=== PATIENT | male | born 1975 | race Caucasian/White ===

== ENCOUNTER 2016-02-20 23:21 | Emergency (ER) | payer MEDICAID ==
[~2016-02-20] VITALS: Ht 182.9 cm; Wt 123.8 kg
[~2016-02-20 23:21] MED LIST: ANTIVERT GENERI25 MG PO; ASPIRIN 81MG TA81 MG PO; ATIVAN0.5 MG PO; ATORVASTATIN CA40 MG PO; CARVEDILOL6.25 MG PO; CLONAZEPAM0.5 M1 PO; DIOVAN80 MG PO; DOXYCYCLINE100 M1 PO; ETODOLAC400 MG PO; HYDROCHLOROTHIA25 M1 PO; HYDROCODONE-APA1 TA1 PO; HYDROCODONE-APA1 TA2 PO; HYDROXYZINE PA100 MG PO; KLOR-CON M2020 ME1 PO; LOSARTAN POTASS50 MG PO; MAG-OX 400MG T400 MG PO; MECLIZINE 25MG25 MG PO; METOPROLOL SUC200 M1 PO; METOPROLOL SUCC50 M1 PO; METOPROLOL SUCC50 M2 PO; METOPROLOL TAR100 MG PO; METOPROLOL TART50 MG; NORCO 325 MG-51 TAB PO; OMEPRAZOLE40 MG PO; PERCOGESIC EXTR1 TAB PO; PHENERGAN VC +120 ML PO; PREDNISONE 20MG20 MG PO; PROZAC 20MG CAP20 MG PO; QUETIAPINE FUM100 M2 PO; ROBITUSSIN DM S10 ML NG; TESSALON PERLE100 MG PO; VENLAFAXINE HCL50 MG PO; ZANAFLEX4 MG NG; ZITHROMAX Z-PA250 M1 PO; ZOFRAN4 MG PO
[2016-02-20] MEDS ORDERED: BENADRYL 25MG C25 MG PO (23:34)
[2016-02-21] LABS: HEMOGLOBIN 15.4 g/dL (14.1-18.0); LYMPH # 3.1 K/mm3 (0.7-4.5); LYMPH % 30.8 % (10-50)
--- NOTE | 2016-02-21 00:14 | Emergency Room Report ---
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 N Clinical Suspician of Infection? N Mental Status: 1 - Regular (Normal Baseline) Sepsis Risk:Possible Sepsis Risk Have you (or family members/close friends) recently traveled outside the [place]? N If Yes, where/when: Have you had exposure to infectious disease within the past month? N TB? Other? Specify: Source patient, RN notes reviewed, old records Exam Limitations no limitations Comment after eating burning pain in throat and center chest to upper abd with feeling of sob - he had ok cath 2014 and has appt this week with card for pac - he denied any melena or other c/o at this time Cardiac Chest Pain Chest pain indicative of cardiac No Timing/Duration this evening Severity moderate ALLERGIES Coded Allergies: buspirone (From BUSPAR) (Intermediate, I-HIVES 01/16/16) peanut oil (ANAPHYLAXIS 01/16/16) Uncoded Allergies: STEROIDS (PT STATES CAUSE "HYPERTENSIVE EMERGENCY" 03/07/15) Home Medications Reported Medications Clonazepam (Clonazepam 0.5MG) 0.5 MG PO BID #60 TAB Losartan Potassium (Losartan 50MG) 50 MG PO DAILY #30 TAB MAGNESIUM OXIDE (Magnesium Oxide) 400 MG PO DAILY METOPROLOL SUCCINATE (Metoprolol ER 200MG) 200 MG PO DAILY #30 ASPIRIN (Aspirin) 81 MG PO DAILY Diphenhydramine Hcl (Benadryl 25MG CAP) 1 CAP PO Q6H PRN History Medical History General CAD? No Angina: Yes NM: No Hypertension? Yes Hyperlipidemia? Yes CHF? No DVT? No PE? No COPD? No Asthma? No Anemia? No GERD? Yes Gastric ulcers? No GI Bleed? No Hernia? No Thyroid Problems? No Hypothyroidism? No CVA? No Seizures? No Diabetes? No Insulin Dependent: No Insulin Pump: No Home FSBS? No Renal Insuffiency? No End Stage Renal Disease? No UTI? No Stones? No BPH? No GB Disease: Yes Nephritic Syndrome? No Asplenia? No Hepatitis? No Sickle Cell Disease? No Arthritis? No Migraines? No Cataracts? No Glaucoma? No MRSA? No HIV? No TB? No Anxiety? Yes Depression? Yes Cancer? No More? Yes Additional hx: PTSD Immunization Hx DT/Tetanus 1-4 Years Ago Flu [id number] Flu Season Pneumonia Received In Past Surgical Hx Previous Surgery?Y APPY RIGHT HAND-LIGAMENT REPAI CARDIAC CATH 08/23/14 Gallbladder (Other) RIGHT ARM SX Family History Family Hx Diabetes Yes CAD Yes Hypertension Yes Hyperlipidemia Yes Cancer Yes TB No Social History Smoking Hx Smoker: Current Every Day Smoker Tobacco: Yes Type Chew Alcohol Alcohol: No Drugs none Review of Systems All Other Systems Reviewed and Negative Constitutional denies fever Eyes denies drainage ENT denies: ear pain, epistaxis, throat pain. Respiratory see HPI, denies cough, shortness of breath, denies wheezing Cardiovascular see HPI, chest pain, denies palpitations, denies syncope Gastrointestinal denies abdominal pain, denies diarrhea, denies vomiting Genitourinary denies: dysuria, frequency, hesitancy, hematuria. Musculoskeletal denies back pain, denies joint pain, denies joint swelling, denies neck pain Skin denies rash Psychiatric/Neurological denies headache, denies seizure Physical Exam Vital Signs Vital Signs Date Time Temp Pulse Resp B/P Pulse O2 O2 Flow FiO2 Ox Delivery Rate 02/19 2326 97.7 103 20 183/103 100 - WBC >12,000 or <4,000 or 10% bands? 2 or more SIRS Criteria Met? B/P:183/103 MAP:129 Creatinine >2.0? UA output<0.5ml/kg/hr for 2 hrs? Platelet count >100,000? Lactate >2.0mmol/1? INR >1.2 or PTT > than 60 sec? Evidence of Organ Dysfunction? Provider documented clinical suspician of infection? N Sepsis Criteria Count: 2 Sepsis Risk: Possible Sepsis Risk General Appearance no apparent distress Eye Exam - bilateral eye PERRL, bilateral eye EOMI Ear, Nose, Throat normal ENT inspection Neck supple Respiratory Status No: respiratory distress. Lung Sounds bilateral: lungs clear. Cardiovascular regular rate/rhythm, no gallop, no JVD, no rub, systolic murmur Peripheral Pulses Pulses normal Yes Gastrointestinal soft, no organomegaly, no pulsatile mass, no guarding, no rebound Extremities normal inspection Strength 4 Upper Ext (L), 4 Upper Ext (R), 4 Lower Ext (L), 4 Lower Ext (R) Neurologic alert, records assistant II-XII nml as tested, no motor/sensory deficits Reflexes Reflexes normal Yes Mental status normal mood/affect Skin intact Medical Decision Making LABS/Meds/Orders Pt receiving controlled substance in ED? No Results/Orders Laboratory Tests 02/20/16 2350: Sodium 137, Potassium 3.4 L, Chloride 101, Carbon Dioxide 28, BUN 15, Creatinine 1.1, Estimated Creat Clear 152, Estimated GFR (MDRD) 73, Glucose 111 H, Calcium 8.7, Total Bilirubin 0.2, AST 21, ALT 64, Alkaline Phosphatase 101, Creatine Kinase 78, CK-MB (CK-2) Rel Index 0.6, CK and CKMB Interp 0.5, Troponin I < 0.02, Total Protein 7.8, Albumin 3.9, Globulin 3.9 H, Albumin/Globulin Ratio 1.0 L, WBC 10.1, RBC 4.90, Hgb 15.4, Hct 44.0, MCV 89.8, RDW 13.1, Plt Count 448 H, MPV 8.3, Gran % 62.9, Gran # 6.4, Lymphocytes % 30.8, Monocytes % 4.1, Eosinophils % 1.7, Basophils % 0.5, Lymphocytes # 3.1, Monocytes # 0.4, Eosinophils # 0.2, Basophils # 0.1, PUBS MCHC 35.0, MCH 31.4 H Current Medication Orders Sig/Pallavi Start time Last Medication Dose Route Stop Time Status Admin Sodium Chloride 10 ML PRN PRN 02/21 44 AC 02/20 IV 02/210 0042 Famotidine 0 .STK-MED ONE 02/20 27 DC IV Metoclopramide HCl 0 .STK-MED ONE 02/20 27 DC .ROUTE Famotidine 20 MG ONCE ONE 02/20 14 DC 02/20 IV 02/20 Metoclopramide HCl 10 MG ONCE ONE 02/20 14 DC 02/20 IVP 02/206 004 Sodium Chloride 8 ML ONCE ONE 02/20 14 DC 02/20 IV 01/04 0016 0041 Orders Procedure Date/time Status IV SALINE LOCK 02/21 40 Active ELECTROCARDIOGRAM REQUEST 02/20 2340 Active CHEST(2 VIEWS-NOT PORTABLE) 02/20 2340 Active CBC WITH AUTO DIFF 02/20 2340 Complete CARDIAC ENZYMES 02/20 2340 Complete CHEM 12 PROFILE 02/20 2340 Complete 12 LEAD EKG-[facility] (INITIAL) 02/19 UNK Active 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 ST/Twave chgs XRAY/CT/US XRAY/CT/US XRAY chest XR interpretation by reviewed by me Xray Results abnormal (cm) Progress ED Progress Notes Date 02/21/16 Comment feels better after meds Departure Departure Time of Disposition 0104 Disposition DC Home or Self Care(routine) Clinical Impression Primary Impression: Chest pain Qualifiers: Chest pain type: unspecified Qualified Code: R07.9 - Chest pain, unspecified Condition STABLE Patient Instructions DI for Chest Pain Additional Instructions see card as planned and resume meds Discharge Counseling Counseled pt/family regarding diagnosis, test results, follow up needs ED Critical Care Critical Care No at 0108
[2016-02-21 00:25] LABS: BUN 15 mg/dL (7-18)
[2016-02-21 00:26] LABS: GFR (ESTIMATED) 73 ML/MIN (>60)
[2016-02-21 01:15] VITALS: BP 154/78
--- NOTE | 2016-02-21 08:36 | RADIOLOGY REPORT PS360 ---
CHEST(2 VIEWS-NOT PORTABLE) COMPARISON: PA and lateral chest 01/16/2016 HISTORY: Shortness of breath TECHNIQUE: PA and lateral chest FINDINGS: This is a somewhat poor inspiration however lung banks are clear. There is mild generalized cardio megaly and there is a small cardiac monitoring device overlying the left anterior chest is no pleural fluid. IMPRESSION: Stable mild cardio megaly, no acute chest pathology noted
[2016-04-18] MEDS ORDERED: CLONAZEPAM0.5 M1 PO (02:39)
[2016-05-19] MEDS ORDERED: FLOVENT 22220 MCG/PU IH (17:59)
[2016-05-19] MEDS ORDERED: KEFLEX500 M1 PO (17:59)
== END 2016-02-21 01:15 | disposition home or self-care (01) ==
LOC: ER 23:21
PROVIDERS: Emergency Medicine
DX: R07.9 Chest pain, unspecified (principal); F41.8 Other specified anxiety disorders; K21.9 Gastro-esophageal reflux disease without esophagitis; I10 Essential (primary) hypertension

== ENCOUNTER 2016-11-02 13:35 | Emergency (ER) | payer MEDICARE ==
[~2016-11-02] VITALS: Ht 182.9 cm; Wt 122.5 kg
[~2016-11-02 13:35] MED LIST changes: +ACETAMINOPHEN-H1 TA1 PO; +BENADRYL 25MG C25 MG PO; +FLOVENT 22220 MCG/PU IH; +KEFLEX500 M1 PO; +PHENERGAN25 M3 PO
[2016-11-02] MEDS ORDERED: DOXEPIN 25MG CA25 MG PO (13:59)
--- NOTE | 2016-11-02 14:14 | Emergency Room Report ---
History of Present Illness Time Seen by [id number] Presenting Problem in Triage Pt arrived: Presenting Problem: Onset of symptoms date/time:/ or onset unknown for: Treatment Prior to Arrival: [facility] Provided by: Sepsis Risk Assessment: Temp: B/P: MAP: Pulse: Resp: Recent fever? Clinical Suspician of Infection? Mental Status: Sepsis Risk: Have you (or family members/close friends) recently traveled outside the [place]? If Yes, where/when: Have you had exposure to infectious disease within the past month? TB? Other? Specify: Patient with loop recorder for dx of paroxysmal Afib; followed by Dr. Annie Rock in [place] as well as Dr. Mckay in [place]. He has had the sensation of brief episodes of Afib over the past three days, lasting just seconds, but at times feels SOB without palpitations. No chest pain. Told by [employer] to go to ER for evaluation. Overall doing well since stopping Klonopin and starting Doxepin per Dr. Flores in [place]. Anxiety is well under control and overall is feeling much better about his life in general. ALLERGIES Coded Allergies: buspirone (From BUSPAR) (Intermediate, I-HIVES 04/18/16) peanut oil (ANAPHYLAXIS 04/18/16) Home Medications Reported Medications MAGNESIUM OXIDE (Magnesium Oxide) 400 MG PO DAILY METOPROLOL SUCCINATE (Metoprolol ER 200MG) 200 MG PO DAILY #30 HYDROCODONE/ACETAMINOPHEN (Hydrocodon-Acetaminophn 10-325) 1 TAB PO PRN PRN PAIN #60 Doxepin Hcl (Doxepin 25MG Capsule) 25 MG PO QHS #30 History Medical History General CAD? Yes Angina: Yes NM: No Hypertension? Yes Hyperlipidemia? Yes CHF? No DVT? No PE? No COPD? No Asthma? No Anemia? No GERD? Yes Gastric ulcers? No GI Bleed? No Hernia? No Thyroid Problems? No Hypothyroidism? No CVA? No Seizures? No Diabetes? No Insulin Dependent: No Insulin Pump: No Home FSBS? No Renal Insuffiency? No End Stage Renal Disease? No UTI? No Stones? No BPH? No GB Disease: Yes Nephritic Syndrome? No Asplenia? No Hepatitis? No Sickle Cell Disease? No Arthritis? No Migraines? No Cataracts? No Glaucoma? No MRSA? No HIV? No TB? No Anxiety? Yes Depression? Yes Cancer? No More? Yes Additional hx: PTSD Immunization Hx DT/Tetanus 1-4 Years Ago Flu [id number] Flu Season Pneumonia Received In Past Surgical Hx Previous Surgery?Y APPY RIGHT HAND-LIGAMENT REPAI CARDIAC CATH 08/23/14 Gallbladder (Other) RIGHT ARM SX R SHOULDER LEFT ARM LOOP RECORDER Family History Family Hx Diabetes Yes CAD Yes Hypertension Yes Hyperlipidemia Yes Cancer Yes TB No Social History Alcohol Alcohol: No Review of Systems All Other Systems Reviewed and Negative Respiratory see HPI Cardiovascular see HPI, denies chest pain, denies edema, palpitations, denies syncope Psychiatric/Neurological anxiety (anxiety improved on new Rx) Physical Exam Vital Signs Vital Signs Date Time Temp Pulse Resp B/P Pulse O2 O2 Flow FiO2 Ox Delivery Rate 11/02 1550 73 18 133/85 97 11/02 1441 78 18 134/86 96 11/02 1339 97.7 86 18 135/89 96 General Appearance normal appearance, WD/WN, no apparent distress Eye Exam - bilateral eye normal exam, bilateral eye PERRL, bilateral eye EOMI Neck normal inspection, supple, full range of motion Respiratory Status Yes: trachea midline, chest symmetrical, non tender chest. No: respiratory distress, tender on palpation, use of accessory muscles, pain on inspiration, pain on expiration, productive cough, non productive cough. Lung Sounds bilateral: normal breath sounds, lungs clear. Cardiovascular normal exam, regular rate/rhythm, no peripheral edema, no gallop, no JVD, no murmur, no rub, normal peripheral pulses Gastrointestinal normal bowel sounds, normal exam, non tender, soft, no organomegaly, no pulsatile mass, no guarding, no rebound Extremities non-tender, normal range of motion, normal inspection, normal capillary refill, no calf tenderness, no pedal edema Strength 5 Upper Ext (L), 5 Upper Ext (R), 5 Lower Ext (L), 5 Lower Ext (R) Neurologic alert, normal exam, no motor/sensory deficits, oriented x 3 Glascow Coma Scale Glascow Coma Scale Response Value EYE response: 4 Spontaneously 4 MOTOR response: 6 OBEYS 6 VERBAL response: 5 Oriented & Converses 5 Total 15 Mental status normal mood/affect Skin intact, normal color, warm/dry Medical Decision Making LABS/Meds/Orders Pt receiving controlled substance in ED? No Results/Orders Laboratory Tests 11/02/16 1415: Sodium 138, Potassium 4.1, Chloride 102, Carbon Dioxide 27, BUN 15, Creatinine 0.8, Estimated Creat Clear 206 H, Estimated GFR (MDRD) 106, Glucose 96, Calcium 9.1, Total Bilirubin 0.2, AST 25, ALT 74, Alkaline Phosphatase 92, Creatine Kinase 105, CK-MB (CK-2) Rel Index 0.5, CK and CKMB Interp < 0.5, Troponin I < 0.02, Total Protein 7.9, Albumin 4.0, Globulin 3.9 H, Albumin/Globulin Ratio 1.0 L, D-Dimer < 100, WBC 8.4, RBC 5.10, Hgb 15.4, Hct 45.4, MCV 89.1, RDW 12.1 , Plt Count 404, MPV 6.9 L, Gran % 63.3, Gran # 5.3, Lymphocytes % 28.4, Monocytes % 4.9, Eosinophils % 3.0, Basophils % 0.4, Lymphocytes # 2.4, Monocytes # 0.4, Eosinophils # 0.3, Basophils # 0.0, PUBS MCHC 33.9, MCH 30.2 Current Medication Orders Sig/Pallavi Start time Last Medication Dose Route Stop Time Status Admin Promethazine HCl 12.5 MG ONCE ONE 11/02 1530 DC 11/02 IV 11/02 1531 1526 Sodium Chloride 25 ML ONCE ONE 11/02 1530 DC 11/02 IV 11/02 1544 1526 Promethazine HCl 0 .STK-MED ONE 11/02 1523 DC .ROUTE Sodium Chloride 25 ML .STK-MED ONE 11/02 1523 DC IV Ondansetron HCl 0 .STK-MED ONE 11/02 1520 DC .ROUTE Ondansetron HCl 4 MG ONCE ONE 11/02 1515 CAN IV 11/02 1516 Sodium Chloride 10 ML PRN PRN 11/02 1430 AC IV 11/03 1416 Orders Procedure Date/time Status IV SALINE LOCK 11/02 1416 Active FUND RAISER 11/02 1416 Active D-DIMER 11/02 1409 Complete CBC WITH AUTO DIFF 11/02 1409 Complete CARDIAC ENZYMES 11/02 1409 Complete CHEM 12 PROFILE 11/02 1409 Complete 12 LEAD EKG-[facility] (INITIAL) 11/02 1400 Active ELECTROCARDIOGRAM REQUEST 11/02 1356 Active CM/EKG CM/EKG EKG rate, NSR, rhythm, no evid. of ischemic chgs, no ectopy, normal QRS, normal TX, normal EKG (NSR 81; no ectopy) Departure Departure Time of Disposition 1606 Disposition DC Home or Self Care(routine) Clinical Impression Primary Impression: Palpitations Secondary Impressions: History of paroxysmal atrial tachycardia Condition STABLE Referrals DARIANA RUST (Family) Patient Instructions DI for Palpitations Additional Instructions See Dr. Rock for follow up next week. See Dr. Aman Rust as well. Continue current medications Discharge Counseling Counseled pt/family regarding diagnosis, test results ED Critical Care Critical Care No at 1611
--- NOTE | 2016-11-02 14:14 | Emergency Room Report ---
History of Present Illness Time Seen by [id number] Presenting Problem in Triage Pt arrived: Presenting Problem: Onset of symptoms date/time:/ or onset unknown for: Treatment Prior to Arrival: [employer] Provided by: Sepsis Risk Assessment: Temp: B/P: MAP: Pulse: Resp: Recent fever? Clinical Suspician of Infection? Mental Status: Sepsis Risk: Have you (or family members/close friends) recently traveled outside the [place]? If Yes, where/when: Have you had exposure to infectious disease within the past month? TB? Other? Specify: Patient with loop recorder for dx of paroxysmal Afib; followed by Dr. Annie Rock in [place] as well as Dr. Mckay in [place]. He has had the sensation of brief episodes of Afib over the past three days, lasting just seconds, but at times feels SOB without palpitations. No chest pain. Told by [employer] to go to ER for evaluation. Overall doing well since stopping Klonopin and starting Doxepin per Dr. Flores in [place]. Anxiety is well under control and overall is feeling much better about his life in general. ALLERGIES Coded Allergies: buspirone (From BUSPAR) (Intermediate, I-HIVES 04/18/16) peanut oil (ANAPHYLAXIS 04/18/16) Home Medications Reported Medications MAGNESIUM OXIDE (Magnesium Oxide) 400 MG PO DAILY METOPROLOL SUCCINATE (Metoprolol ER 200MG) 200 MG PO DAILY #30 HYDROCODONE/ACETAMINOPHEN (Hydrocodon-Acetaminophn 10-325) 1 TAB PO PRN PRN PAIN #60 Doxepin Hcl (Doxepin 25MG Capsule) 25 MG PO QHS #30 History Medical History General CAD? Yes Angina: Yes ID: No Hypertension? Yes Hyperlipidemia? Yes CHF? No DVT? No PE? No COPD? No Asthma? No Anemia? No GERD? Yes Gastric ulcers? No GI Bleed? No Hernia? No Thyroid Problems? No Hypothyroidism? No CVA? No Seizures? No Diabetes? No Insulin Dependent: No Insulin Pump: No Home FSBS? No Renal Insuffiency? No End Stage Renal Disease? No UTI? No Stones? No BPH? No GB Disease: Yes Nephritic Syndrome? No Asplenia? No Hepatitis? No Sickle Cell Disease? No Arthritis? No Migraines? No Cataracts? No Glaucoma? No MRSA? No HIV? No TB? No Anxiety? Yes Depression? Yes Cancer? No More? Yes Additional hx: PTSD Immunization Hx DT/Tetanus 1-4 Years Ago Flu 1422-2021 Flu Season Pneumonia Received In Past Surgical Hx Previous Surgery?Y APPY RIGHT HAND-LIGAMENT REPAI CARDIAC CATH 08/23/14 Gallbladder (Other) RIGHT ARM SX R SHOULDER LEFT ARM LOOP RECORDER Family History Family Hx Diabetes Yes CAD Yes Hypertension Yes Hyperlipidemia Yes Cancer Yes TB No Social History Alcohol Alcohol: No Review of Systems All Other Systems Reviewed and Negative Respiratory see HPI Cardiovascular see HPI, denies chest pain, denies edema, palpitations, denies syncope Psychiatric/Neurological anxiety (anxiety improved on new Rx) Physical Exam Vital Signs Vital Signs Date Time Temp Pulse Resp B/P Pulse O2 O2 Flow FiO2 Ox Delivery Rate 11/02 1550 73 18 133/85 97 11/02 1441 78 18 134/86 96 11/02 1339 97.7 86 18 135/89 96 General Appearance normal appearance, WD/WN, no apparent distress Eye Exam - bilateral eye normal exam, bilateral eye PERRL, bilateral eye EOMI Neck normal inspection, supple, full range of motion Respiratory Status Yes: trachea midline, chest symmetrical, non tender chest. No: respiratory distress, tender on palpation, use of accessory muscles, pain on inspiration, pain on expiration, productive cough, non productive cough. Lung Sounds bilateral: normal breath sounds, lungs clear. Cardiovascular normal exam, regular rate/rhythm, no peripheral edema, no gallop, no JVD, no murmur, no rub, normal peripheral pulses Gastrointestinal normal bowel sounds, normal exam, non tender, soft, no organomegaly, no pulsatile mass, no guarding, no rebound Extremities non-tender, normal range of motion, normal inspection, normal capillary refill, no calf tenderness, no pedal edema Strength 5 Upper Ext (L), 5 Upper Ext (R), 5 Lower Ext (L), 5 Lower Ext (R) Neurologic alert, normal exam, no motor/sensory deficits, oriented x 3 Glascow Coma Scale Glascow Coma Scale Response Value EYE response: 4 Spontaneously 4 MOTOR response: 6 OBEYS 6 VERBAL response: 5 Oriented & Converses 5 Total 15 Mental status normal mood/affect Skin intact, normal color, warm/dry Medical Decision Making LABS/Meds/Orders Pt receiving controlled substance in ED? No Results/Orders Laboratory Tests 11/02/16 1415: Sodium 138, Potassium 4.1, Chloride 102, Carbon Dioxide 27, BUN 15, Creatinine 0.8, Estimated Creat Clear 206 H, Estimated GFR (MDRD) 106, Glucose 96, Calcium 9.1, Total Bilirubin 0.2, AST 25, ALT 74, Alkaline Phosphatase 92, Creatine Kinase 105, CK-MB (CK-2) Rel Index 0.5, CK and CKMB Interp < 0.5, Troponin I < 0.02, Total Protein 7.9, Albumin 4.0, Globulin 3.9 H, Albumin/Globulin Ratio 1.0 L, D-Dimer < 100, WBC 8.4, RBC 5.10, Hgb 15.4, Hct 45.4, MCV 89.1, RDW 12.1 , Plt Count 404, MPV 6.9 L, Gran % 63.3, Gran # 5.3, Lymphocytes % 28.4, Monocytes % 4.9, Eosinophils % 3.0, Basophils % 0.4, Lymphocytes # 2.4, Monocytes # 0.4, Eosinophils # 0.3, Basophils # 0.0, PUBS MCHC 33.9, MCH 30.2 Current Medication Orders Sig/Pallavi Start time Last Medication Dose Route Stop Time Status Admin Promethazine HCl 12.5 MG ONCE ONE 11/02 1530 DC 11/02 IV 11/02 1531 1526 Sodium Chloride 25 ML ONCE ONE 11/02 1530 DC 11/02 IV 11/02 1544 1526 Promethazine HCl 0 .STK-MED ONE 11/02 1523 DC .ROUTE Sodium Chloride 25 ML .STK-MED ONE 11/02 1523 DC IV Ondansetron HCl 0 .STK-MED ONE 11/02 1520 DC .ROUTE Ondansetron HCl 4 MG ONCE ONE 11/02 1515 CAN IV 11/02 1516 Sodium Chloride 10 ML PRN PRN 11/02 1430 AC IV 11/03 1416 Orders Procedure Date/time Status IV SALINE LOCK 11/02 1416 Active SURGICAL AIDE 11/02 1416 Active D-DIMER 11/02 1409 Complete CBC WITH AUTO DIFF 11/02 1409 Complete CARDIAC ENZYMES 11/02 1409 Complete CHEM 12 PROFILE 11/02 1409 Complete 12 LEAD EKG-[facility] (INITIAL) 11/02 1400 Active ELECTROCARDIOGRAM REQUEST 11/02 1356 Active CM/EKG CM/EKG EKG rate, NSR, rhythm, no evid. of ischemic chgs, no ectopy, normal QRS, normal NM, normal EKG (NSR 81; no ectopy) Departure Departure Time of Disposition 1606 Disposition DC Home or Self Care(routine) Clinical Impression Primary Impression: Palpitations Secondary Impressions: History of paroxysmal atrial tachycardia Condition STABLE Referrals DARIANA RUST (Family) Patient Instructions DI for Palpitations Additional Instructions See Dr. Rock for follow up next week. See Dr. Aman Rust as well. Continue current medications Discharge Counseling Counseled pt/family regarding diagnosis, test results ED Critical Care Critical Care No at 1611
[2016-11-02 14:34] LABS: HEMOGLOBIN 15.4 g/dL (14.1-18.0); LYMPH # 2.4 K/mm3 (0.7-4.5); LYMPH % 28.4 % (10-50)
[2016-11-02 14:48] LABS: BUN 15 mg/dL (7-18); GFR (ESTIMATED) 106 ML/MIN (>60)
[2016-11-02 16:23] VITALS: BP 125/76
== END 2016-11-02 16:24 | disposition home or self-care (01) ==
LOC: ER 13:35
PROVIDERS: Emergency Medicine
DX: I48.0 Paroxysmal atrial fibrillation (principal); I25.10 Atherosclerotic heart disease of native coronary artery without angina pectoris; I10 Essential (primary) hypertension; F41.9 Anxiety disorder, unspecified; F32.9 Major depressive disorder, single episode, unspecified; Z79.891 Long term (current) use of opiate analgesic

== ENCOUNTER 2016-12-22 01:42 | Emergency (ER) | payer MEDICARE ==
[~2016-12-22] VITALS: Ht 182.9 cm; Wt 124.3 kg
[~2016-12-22 01:42] MED LIST changes: +DOXEPIN 25MG CA25 MG PO
--- OUTSIDE RECORDS SUMMARY | 2016-12-22 02:00 | External Medical Summary Rpt | CCD ---
Author Author , HORACE VU Address Unknown Phone [email or web address] Team Providers Care Aviation Maintenance Instructor Name Role Phone Danny Cartagena MD, Unavailable Unavailable Danny Cartagena MD Purpose Continuity of Care Document - 08-25-2012 through 2016 Problems Code Diagnosis DOS Provider Status 305.1 305.1 08-25-2012 [place] TOBACCO USE [facility] 466.0 466.0 ACUTE 08-25-2012 [place] BRONCHITIS [facility] M54.9 Dorsalgia, unspecified R00.2 Palpitation s R07.9 Chest pain, unspecified Allergies, Adverse Reactions, Alerts Type Drug Allergy Adverse Reaction to Substance Substance Reaction Severity No Known Allergies - Unknown Unknown Nka Vital Signs 08-25-2012 07:37 Name Value Interpretat Reference Comment ion Range BP 94 mm[Hg] Diastolic BP Systolic 135 mm[Hg] Heart 80 /min Rate/Pulse O2% 96 % Respiratory 20 /min Rate Results Labs Lab Lab Date Result Refere Interp Status Commen Order Detail nces retati t Range on Hgb A1c Bld (03-13-2016 09:26) Comment: The [place] [employer] recommends maintenance of Hemoglobin A1C at 7.0% or lower. Goals for Hemoglobin A1C reduction may need to be modified if hypoglycemia is a problem. Hgb A1c 5.30 % 4.80-5. complet MFr 017 60 ed Bld 09:26 Encounters Encounter Start End Date Code Location Performer Type Date Emergency ELIAS Cartagena MD (ER) 3 07:12 3 07:37 [facility]
--- OUTSIDE RECORDS SUMMARY | 2016-12-22 02:00 | External Medical Summary Rpt | CCD ---
Author Author , HROACE VU Address Unknown Phone [email or web address] Care Team Providers Care Painter Rough Name Role Phone Danny Cartagena MD, Unavailable Unavailable Danny Cartagena MD Purpose Continuity of Care Document - 08-25-2012 through 2016 Problems Code Diagnosis DOS Provider Status 305.1 305.1 08-25-2012 [place] TOBACCO USE [facility] 466.0 466.0 ACUTE 08-25-2012 [place] BRONCHITIS [facility] M54.9 Dorsalgia, unspecified R00.2 Palpitation s R07.9 [...] Hgb A1c Bld (03-13-2016 09:26) Comment: The [place] [employer] recommends maintenance of Hemoglobin A1C at 7.0% or lower. Goals for Hemoglobin A1C reduction may need to be modified if hypoglycemia is a problem. Hgb A1c 5.30 % 4.80-5. complet MFr 017 60 ed Bld 09:26 Encounters Encounter Start End Date Code Location Performer Type Date Emergency ELIAS Cartagena MD (ER) 3 07:12 3 07:37 [facility]
--- OUTSIDE RECORDS SUMMARY | 2016-12-22 02:01 | External Medical Summary Rpt | CCD ---
Demographics Preferred Language Tongan Marital Status Unknown Catholic Affiliation Unknown Race Unknown Ethnic Group Unknown Author Author , HORACE VU Address Unknown Phone Immunization Unable to retrieve immunization data due to connection failure with Immunization Registry. Please try again later.
--- OUTSIDE RECORDS SUMMARY | 2016-12-22 02:01 | External Medical Summary Rpt | CCD ---
Demographics Preferred Language Nigerien Marital Status Unknown Judaism Affiliation Unknown Race Unknown Ethnic Group Unknown Author Author , HORACE VU Address Unknown Phone Immunization Unable to retrieve immunization data due to connection failure with Immunization Registry. Please try again later.
--- OUTSIDE RECORDS SUMMARY | 2016-12-22 02:03 | External Medical Summary Rpt ---
Author Author [employer], [facility] Organization [employer] Address Unknown Phone Unavailable Results CBC W Auto Differential panel in Blood Observa Value Referen Units Interpr Notes Date tion ce etation Range Basophils 0 - 0.2 K/MM3 Normal No Sep 16 informati 2017 2:15 [#/volume on in PM ] in source Blood by data Automated count Basophils 0.1 - 2.0 % Normal No Sep 16 /100 informati 2017 2:15 leukocyte on in PM s in source Blood by data Automated count Eosinophi 0.0 - 0.4 K/mm3 Normal No Sep 16 ls informati 2017 2:15 [#/volume on in PM ] in source Blood by data Automated count Eosinophi 0.1 - % Normal No Sep 16 ls/100 12.0 informati 2017 2:15 leukocyte on in PM s in source Blood by data Automated count Granulocy 1.3 - 8.0 K/mm3 Normal No Sep 16 kael informati 2017 2:15 [#/volume on in PM ] in source Blood by data Automated count Granulocy 37.0 - % Normal No Sep 16 kael/100 80.0 informati 2017 2:15 leukocyte on in PM s in source Blood by data Automated count Hematocri 42.0 - % Normal No Sep 16 t [Volume 52.0 informati 2017 2:15 on in PM Fraction] source of Blood data Hemoglobi 14.1 - g/dL Normal No Sep 16 n 18.0 informati 2017 2:15 [Mass/vol on in PM ume] in source Blood data Lymphocyt 0.7 - 4.5 K/mm3 Normal No Sep 16 es informati 2017 2:15 [#/volume on in PM ] in source Unspecifi data ed specimen by Automated count Lymphocyt 10 - 50 % Normal No Sep 16 es informati 2017 2:15 [#/volume on in PM ] in source Unspecifi data ed specimen by Automated count Erythrocy 27 - 31.2 pg Normal No Sep 16 te mean informati 2016 2:15 corpuscul on in PM ar source hemoglobi data n [Entitic mass] Erythrocy 31.8 - g/dl Normal No Sep 16 te mean 35.4 inform2016 2:15 corpuscul on in PM ar source hemoglobi data n concentra tion [Mass/vol ume] by Automated count Erythrocy 82.2 - fl Normal No Sep 16 te mean 97.8 inform2016 2:15 corpuscul on in PM ar volume source [Entitic data volume] by Automated count Monocytes 0.1 - 1.0 K/mm3 Normal No Sep 16 2016 2:15 [#/volume on in PM ] in source Blood by data Automated count Monocytes 1.7 - 9.3 % Normal No Oct 16 2016 2:15 leukocyte on in PM s in source Blood by data Automated count Platelet 7.4 - fl Low No Sep 16 mean 10.4 inform2016 2:15 volume on in PM [Entitic source volume] data in Blood by Automated count Platelets 142 - 424 K/mm3 Normal No Sep 16 2016 2:15 [#/volume on in PM ] in source Blood data Erythrocy 4.6 - 6.2 M/mm3 Normal No Sep 16 kael inform2016 2:15 [#/volume on in PM ] in source Amniotic data fluid Erythrocy 11.5 - % Normal No Sep 16 te 17.5 inform2016 2:15 distribut on in PM ion width source [Entitic data volume] by Automated count Leukocyte 4.8 - K/MM3 Normal No Sep 16 s 10.8 2016 2:15 [#/volume on in PM ] in source Blood data Magnesium [Moles/volume] in Unspecified specimen Observa Value Referen Units Interpr Notes Date tion ce etation Range Magnesium 1.4 - 2.2 mg/dL Normal No Sep 192016 7:32 [Moles/vo on in AM lume] in source Unspecifi data ed specimen CBC W Auto Differential panel in Blood Observa Value Referen Units Interpr Notes Date tion ce etation Range Basophils 0 - 0.2 K/MM3 Normal No Sep 192016 7:32 [#/volume on in AM ] in source Blood by data Automated count Basophils 0.1 - 2.0 % Normal No Sep 19 informati 2016 7:32 leukocyte on in AM s in source Blood by data Automated count Eosinophi 0.0 - 0.4 K/mm3 Normal No Sep 19 ls informati 2016 7:32 [#/volume on in AM ] in source Blood by data Automated count Eosinophi 0.1 - % Normal No Sep 19 ls/100 12.0 informati 2016 7:32 leukocyte on in AM s in source Blood by data Automated count Granulocy 1.3 - 8.0 K/mm3 High No Sep 19 kael informati 2016 7:32 [#/volume on in AM ] in source Blood by data Automated count Granulocy 37.0 - % Normal No Sep 19 kael/100 80.0 informati 2016 7:32 leukocyte on in AM s in source Blood by data Automated count Hematocri 42.0 - % Normal No Sep 19 t [Volume 52.0 informati 2016 7:32 on in AM Fraction] source of Blood data Hemoglobi 14.1 - g/dL Normal Sep 19 n 18.0 informati 2016 7:32 [Mass/vol on in AM ume] in source Blood data Lymphocyt 0.7 - 4.5 K/mm3 Normal No Sep 19 es informati 2016 7:32 [#/volume on in AM ] in source Unspecifi data ed specimen by Automated count Lymphocyt 10 - 50 % Normal No Sep 19 es informati 2016 7:32 [#/volume on in AM ] in source Unspecifi data ed specimen by Automated count Erythrocy 27 - 31.2 pg Normal No Sep 19 te mean informati 2016 7:32 corpuscul on in AM ar source hemoglobi data n [Entitic mass] Erythrocy 31.8 - g/dl Normal No Sep 19 te mean 35.4 informati 2016 7:32 corpuscul on in AM ar source hemoglobi data n concentra tion [Mass/vol ume] by Automated count Erythrocy 82.2 - fl Normal No Sep 19 te mean 97.8 informati 2016 7:32 corpuscul on in AM ar volume source [Entitic data volume] by Automated count Monocytes 0.1 - 1.0 K/mm3 Normal No Sep 19 informati 2016 7:32 [#/volume on in AM ] in source Blood by data Automated count Monocytes 1.7 - 9.3 % Normal No Sep 19 /100 informati 2016 7:32 leukocyte on in AM s in source Blood by data Automated count Platelet 7.4 - fl Low No Sep 19 mean 10.4 informati 2016 7:32 volume on in AM [Entitic source volume] data in Blood by Automated count Platelets 142 - 424 K/mm3 Normal No Sep 19 informati 2016 7:32 [#/volume on in AM ] in source Blood data Erythrocy 4.6 - 6.2 M/mm3 Normal No Sep 19 kael informati 2016 7:32 [#/volume on in AM ] in source Amniotic data fluid Erythrocy 11.5 - % Normal No Sep 19 te 17.5 informati 2016 7:32 distribut on in AM ion width source [Entitic data volume] by Automated count Leukocyte 4.8 - K/MM3 High No Sep 19 s 10.8 informati 2016 7:32 [#/volume on in AM ] in source Blood data CBC W Auto Differential panel in Blood Observa Value Referen Units Interpr Notes Date tion ce etation Range Basophils 0 - 0.2 K/MM3 Normal No Aug 16 informati 2016 2:45 [#/volume on in PM ] in source Blood by data Automated count Basophils 0.1 - 2.0 % Normal No Aug 16 /100 informati 2017 2:45 leukocyte on in PM s in source Blood by data Automated count Eosinophi 0.0 - 0.4 K/mm3 Normal No Aug 16 ls informati 2016 2:45 [#/volume on in PM ] in source Blood by data Automated count Eosinophi 0.1 - % Normal No Aug 16 ls/100 12.0 informati 2016 2:45 leukocyte on in PM s in source Blood by data Automated count Granulocy 1.3 - 8.0 K/mm3 Normal No Aug 16 kael informati 2016 2:45 [#/volume on in PM ] in source Blood by data Automated count Granulocy 37.0 - % Normal No Aug 16 kael/100 80.0 informati 2016 2:45 leukocyte on in PM s in source Blood by data Automated count Hematocri 42.0 - % Normal No Aug 16 t [Volume 52.0 informati 2016 2:45 on in PM Fraction] source of Blood data Hemoglobi 14.1 - g/dL Normal No Aug 16 n 18.0 informati 2016 2:45 [Mass/vol on in PM ume] in source Blood data Lymphocyt 0.7 - 4.5 K/mm3 Normal No Aug 16 es informati 2016 2:45 [#/volume on in PM ] in source Unspecifi data ed specimen by Automated count Lymphocyt 10 - 50 % Normal No Aug 16 es inform2016 2:45 [#/volume on in PM ] in source Unspecifi data ed specimen by Automated count Erythrocy 27 - 31.2 pg Normal No Aug 16 te mean inform2016 2:45 corpuscul on in PM ar source hemoglobi data n [Entitic mass] Erythrocy 31.8 - g/dl Normal No Aug 16 te mean 35.4 inform2016 2:45 corpuscul on in PM ar source hemoglobi data n concentra tion [Mass/vol ume] by Automated count Erythrocy 82.2 - fl Normal No Aug 16 te mean 97.8 informati 2016 2:45 corpuscul on in PM ar volume source [Entitic data volume] by Automated count Monocytes 0.1 - 1.0 K/mm3 Normal No Aug 162016 2:45 [#/volume on in PM ] in source Blood by data Automated count Monocytes 1.7 - 9.3 % Normal No Aug 16 inform2016 2:45 leukocyte on in PM s in source Blood by data Automated count Platelet 7.4 - fl Low No Aug 16 mean 10.4 informati 2016 2:45 volume on in PM [Entitic source volume] data in Blood by Automated count Platelets 142 - 424 K/mm3 Normal No Aug 162016 2:45 [#/volume on in PM ] in source Blood data Erythrocy 4.6 - 6.2 M/mm3 Normal No Aug 16 kael informati 2016 2:45 [#/volume on in PM ] in source Amniotic data fluid Erythrocy 11.5 - % Normal No Aug 16 te 17.5 informati 2016 2:45 distribut on in PM ion width source [Entitic data volume] by Automated count Leukocyte 4.8 - K/MM3 Normal No Aug 16 s 10.8 informati 2016 2:45 [#/volume on in PM ] in source Blood data CBC W Auto Differential panel in Blood Observa Value Referen Units Interpr Notes Date tion ce etation Range Basophils 0 - 0.2 K/MM3 Normal No Aug 01 informati 2016 4:05 [#/volume on in PM ] in source Blood by data Automated count Basophils 0.1 - 2.0 % Normal No Aug 01 informati 2016 4:05 leukocyte on in PM s in source Blood by data Automated count Eosinophi 0.0 - 0.4 K/mm3 Normal No Jul 15 ls informati 2016 4:05 [#/volume on in PM ] in source Blood by data Automated count Eosinophi 0.1 - % Normal No Jul 15 ls/100 12.0 informati 2016 4:05 leukocyte on in PM s in source Blood by data Automated count Granulocy 1.3 - 8.0 K/mm3 Normal No Jul 15 kael informati 2016 4:05 [#/volume on in PM ] in source Blood by data Automated count Granulocy 37.0 - % Normal No Aug 01 kael/100 80.0 informati 2016 4:05 leukocyte on in PM s in source Blood by data Automated count Hematocri 42.0 - % Normal No Aug 01 t [Volume 52.0 informati 2016 4:05 on in PM Fraction] source of Blood data Hemoglobi 14.1 - g/dL Normal No Aug 01 n 18.0 informati 2016 4:05 [Mass/vol on in PM ume] in source Blood data Lymphocyt 0.7 - 4.5 K/mm3 Normal No Aug 01 es informati 2016 4:05 [#/volume on in PM ] in source Unspecifi data ed specimen by Automated count Lymphocyt 10 - 50 % Normal No Aug 01 es informati 2016 4:05 [#/volume on in PM ] in source Unspecifi data ed specimen by Automated count Erythrocy 27 - 31.2 pg High No Aug 01 te mean informati 2016 4:05 corpuscul on in PM ar source hemoglobi data n [Entitic mass] Erythrocy 31.8 - g/dl Normal No Aug 01 te mean 35.4 informati 2016 4:05 corpuscul on in PM ar source hemoglobi data n concentra tion [Mass/vol ume] by Automated count Erythrocy 82.2 - fl Normal No Aug 01 te mean 97.8 informati 2016 4:05 corpuscul on in PM ar volume source [Entitic data volume] by Automated count Monocytes 0.1 - 1.0 K/mm3 Normal No Aug 01 informati 2016 4:05 [#/volume on in PM ] in source Blood by data Automated count Monocytes 1.7 - 9.3 % Normal No Francis 15 /100 informati 2017 4:05 leukocyte on in PM s in source Blood by data Automated count Platelet 7.4 - fl Low No Jul 15 mean 10.4 informati 2017 4:05 volume on in PM [Entitic source volume] data in Blood by Automated count Platelets 142 - 424 K/mm3 Normal No Jul 15 informati 2017 4:05 [#/volume on in PM ] in source Blood data Erythrocy 4.6 - 6.2 M/mm3 Low No Jul 15 kael informati 2016 4:05 [#/volume on in PM ] in source Amniotic data fluid Erythrocy 11.5 - % Normal No Jul 15 te 17.5 informati 2017 4:05 distribut on in PM ion width source [Entitic data volume] by Automated count Leukocyte 4.8 - K/MM3 Normal No Jul 15 s 10.8 informati 2016 4:05 [#/volume on in PM ] in source Blood data Amylase [Enzymatic activity/volume] in Serum or Plasma Observa Value Referen Units Interpr Notes Date tion ce etation Range Amylase 25 - 115 U/L Normal No Jul 11 [Enzymati informati 2017 8:30 c on in PM activity/ source volume] data in Serum or Plasma Comprehensive metabolic 2000 panel in Serum or Plasma Observa Value Referen Units Interpr Notes Date tion ce etation Range Albumin/G 1.1 - 1.8 No Normal No Jul 11 lobulin informati informati 2017 8:30 [Mass on in on in PM ratio] in source source Serum or data data Plasma Albumin 3.4 - 5.0 gm/dL Normal No Jul 28 [Mass/vol informati 2017 8:30 ume] in on in PM Serum or source Plasma data Alkaline 46 - 116 U/L Normal No Jul 28 phosphata informati 2016 8:30 se on in PM [Enzymati source c data activity/ volume] in Serum or Plasma Bilirubin 0.2 - 1.0 mg/dL Normal No Jul 11 .total informati 2017 8:30 [Mass/vol on in PM ume] in source Serum or data Plasma Urea 7 - 18 mg/dL High No Jul 11 nitrogen informati 2017 8:30 [Mass/vol on in PM ume] in source Serum or data Plasma Calcium 8.5 - mg/dL Normal No Jul 11 [Mass/vol 10.1 informati 2017 8:30 ume] in on in PM Serum or source Plasma data Chloride 98 - 107 mmoL/L Normal No Jul 28 [Moles/vo informati 2016 8:30 lume] in on in PM Serum or source Plasma data Carbon 21.0 - mmoL/L Normal No Jul 28 dioxide, 32.0 informati 2016 8:30 total on in PM [Moles/vo source lume] in data Serum or Plasma Creatinin 0.70 - mg/dL Normal No Jul 28 e 1.30 informati 2016 8:30 [Mass/vol on in PM ume] in source Serum or data Plasma Creatinin 50 - 200 ML/MIN Normal No Jul 28 e renal informati 2016 8:30 clearance on in PM source predicted data by Cockcroft -Gault formula Estimated >60 ML/MIN No REFERENCE Jul 28 informati RANGE: 2017 8:30 glomerula on in >60 PM r source ML/MIN/1. filtratio data 73 SQUARE n rate METERSIf (GF this patient is -A merican, then multiply theresult by 1.210. Globulin 1.3 - 3.2 gm/dL High No Jul 28 [Mass/vol informati 2016 8:30 ume] in on in PM Serum source data Glucose 74 - 106 mg/dL Normal No Jul 28 [Mass/vol informati 2016 8:30 ume] in on in PM Serum or source Plasma data Potassium 3.5 - 5.1 mmoL/L Normal No Jul 28 inform2016 8:30 [Moles/vo on in PM lume] in source Serum or data Plasma Sodium 136 - 145 mmoL/L Normal No Jul 28 [Moles/vo informati 2016 8:30 lume] in on in PM Serum or source Plasma data Aspartate 15 - 37 U/L Normal No Jul 28 informati 2016 8:30 aminotran on in PM sferase source [Enzymati data c activity/ volume] in Serum or Plasma Alanine 12 - 78 U/L Normal No Jul 28 aminotran informati 2016 8:30 sferase on in PM [Enzymati source c data activity/ volume] in Serum or Plasma Protein 6.4 - 8.2 gm/dL Normal No Jul 28 [Mass/vol informati 2016 8:30 ume] in on in PM Serum or source Plasma data Lipase [Enzymatic activity/volume] in Serum or Plasma Observa Value Referen Units Interpr Notes Date tion ce etation Range Lipase 73 - 393 U/L Normal No Jul 28 [Enzymati informati 2016 8:30 c on in PM activity/ source volume] data in Serum or Plasma CBC W Auto Differential panel in Blood Observa Value Referen Units Interpr Notes Date tion ce etation Range Basophils 0 - 0.2 K/MM3 Normal No Jul 28 inform2016 8:30 [#/volume on in PM ] in source Blood by data Automated count Basophils 0.1 - 2.0 % Normal No Jul 28 informati 2016 8:30 leukocyte on in PM s in source Blood by data Automated count Eosinophi 0.0 - 0.4 K/mm3 Normal No Jul 28 ls informati 2016 8:30 [#/volume on in PM ] in source Blood by data Automated count Eosinophi 0.1 - % Normal No Jul 28 ls/100 12.0 informati 2016 8:30 leukocyte on in PM s in source Blood by data Automated count Granulocy 1.3 - 8.0 K/mm3 Normal No Jul 28 kael informati 2016 8:30 [#/volume on in PM ] in source Blood by data Automated count Granulocy 37.0 - % Normal No Jul 28 kael/100 80.0 informati 2016 8:30 leukocyte on in PM s in source Blood by data Automated count Hematocri 42.0 - % Low No Jul 28 t [Volume 52.0 informati 2016 8:30 on in PM Fraction] source of Blood data Hemoglobi 14.1 - g/dL Low No Jul 28 n 18.0 informati 2016 8:30 [Mass/vol on in PM ume] in source Blood data Lymphocyt 0.7 - 4.5 K/mm3 Normal No Jul 28 es informati 2016 8:30 [#/volume on in PM ] in source Unspecifi data ed specimen by Automated count Lymphocyt 10 - 50 % Normal No Jul 28 es informati 2016 8:30 [#/volume on in PM ] in source Unspecifi data ed specimen by Automated count Erythrocy 27 - 31.2 pg Normal No Jul 28 te mean informati 2016 8:30 corpuscul on in PM ar source hemoglobi data n [Entitic mass] Erythrocy 31.8 - g/dl Normal No Jul 28 te mean 35.4 informati 2016 8:30 corpuscul on in PM ar source hemoglobi data n concentra tion [Mass/vol ume] by Automated count Erythrocy 82.2 - fl Normal No Jul 28 te mean 97.8 informati 2016 8:30 corpuscul on in PM ar volume source [Entitic data volume] by Automated count Monocytes 0.1 - 1.0 K/mm3 Normal No Jul 11 informati 2016 8:30 [#/volume on in PM ] in source Blood by data Automated count Monocytes 1.7 - 9.3 % Normal No Jul 11 /100 informati 2016 8:30 leukocyte on in PM s in source Blood by data Automated count Platelet 7.4 - fl Low No Jul 28 mean 10.4 informati 2016 8:30 volume on in PM [Entitic source volume] data in Blood by Automated count Platelets 142 - 424 K/mm3 Normal No Jul 28 informati 2016 8:30 [#/volume on in PM ] in source Blood data Erythrocy 4.6 - 6.2 M/mm3 Low No Jul 28 kael informati 2016 8:30 [#/volume on in PM ] in source Amniotic data fluid Erythrocy 11.5 - % Normal No Jul 28 te 17.5 informati 2016 8:30 distribut on in PM ion width source [Entitic data volume] by Automated count Leukocyte 4.8 - K/MM3 Normal No Jul 28 s 10.8 informati 2016 8:30 [#/volume on in PM ] in source Blood data Mg Observa Value Referen Units Interpr Notes Date tion ce etation Range Magnesi 2.2 1.6 - mg/dL No No Dec 05 um 2.4 informa informa 2015 [Moles/ tion in tion in 11:47 volume] source source AM in data data Serum or Plasma Auto Diff Observa Value Referen Units Interpr Notes Date tion ce etation Range Neutrop 75.7 No % No No Dec 05 hils informa informa informa 2015 [#/volu tion in tion in tion in 11:24 me] in source source source AM Blood data data data by Automat ed count Lymphoc 17.5 No % No No Dec 05 ytes informa informa informa 2016 [#/volu tion in tion in tion in 11:24 me] in source source source AM Blood data data data by Automat ed count Monocyt 5.2 No % No No Dec 05 es informa informa informa 2015 [#/volu tion in tion in tion in 11:24 me] in source source source AM Blood data data data by Automat ed count Eos 1.2 No % No No Dec 05 Percent informa informa informa 2016 tion in tion in tion in 11:24 source source source AM data data data Baso 0.4 No % No No Dec 05 Percent informa informa informa 2016 tion in tion in tion in 11:24 source source source AM data data data Neut# 7.0 1.8 - x10(3)/ No No Dec 05 7.7 mcL informa informa 2016 tion in tion in 11:24 source source AM data data Lymph# 1.6 0.6 - x10(3)/ No No Dec 05 4.8 mcL informa informa 2016 tion in tion in 11:24 source source AM data data Chase# 0.5 0.0 - x10(3)/ No No Dec 05 1.3 mcL informa informa 2016 tion in tion in 11:24 source source AM data data Eos# 0.1 0.0 - x10(3)/ No No Dec 05 0.5 mcL informa informa 2016 tion in tion in 11:24 source source AM data data Baso# 0.0 0.0 - x10(3)/ No No Dec 05 0.2 mcL informa informa 2016 tion in tion in 11:24 source source AM data data CBC Observa Value Referen Units Interpr Notes Date tion ce etation Range LEUKOCY 9.2 4.0 - x10(3)/ No No Dec 05 KAEL 11.0 mcL informa informa 2015 tion in tion in 11:24 source source AM data data Erythro 4.76 4.30 - x10(6)/ No No Dec 05 cytes 5.81 mcL informa informa 2015 [#/volu tion in tion in 11:24 me] in source source AM Blood data data by Automat ed count Hemoglo 14.7 13.5 - gm/dL No No Dec 05 bin 17.1 informa informa 2016 [Mass/v tion in tion in 11:24 olume] source source AM in data data Blood Hematoc 43.5 38.9 - % No No Dec 05 rit 51.6 informa informa 2016 [Volume tion in tion in 11:24 source source AM Fractio data data n] of Blood by Automat ed count Erythro 91.3 82.5 - fL No No Dec 05 cyte 99.8 informa informa 2016 mean tion in tion in 11:24 corpusc source source AM ular data data volume [Entiti c volume] by Automat ed count Erythro 30.9 27.0 - pg No No Dec 05 cyte 34.3 informa informa 2016 mean tion in tion in 11:24 corpusc source source AM ular data data hemoglo bin [Entiti c mass] by Automat ed count Erythro 33.8 32.1 - gm/dL No No Dec 05 cyte 35.3 informa informa 2016 mean tion in tion in 11:24 corpusc source source AM ular data data hemoglo bin concent ration [Mass/v olume] by Automat ed count Erythro 12.5 11.5 - % No No Dec 05 cyte 15.0 informa informa 2016 distrib tion in tion in 11:24 ution source source AM width data data [Ratio] by Automat ed count Platele 361 144 - x10(3)/ No No Dec 05 ts 423 mcL informa informa 2016 [#/volu tion in tion in 11:24 me] in source source AM Blood data data by Automat ed count MPV 6.9 6.8 - fL No No Dec 05 10.8 informa informa 2016 tion in tion in 11:24 source source AM data data EK EKG 12 LEAD Observa Value Referen Units Interpr Notes Date tion ce etation Range Station No No No No Dec 05 leona ECG informa informa informa informa 2016 tion in tion in tion in tion in 10:41 Study\. source source source source AM br\St. 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 br\\.br \FINDIN GS:\.br \\.br\T here is some mild depende nt linear opacity at the left costoph renic\. br\sulc us.\.br \Otherw ise, the lungs are clear. The heart and mediast inal contour s are\.br \normal .\.br\T here are no acute osseous finding s in the chest.\ .br\\.b r\IMPRE SSION:\ .br\\.b r\There is mild subsegm ental atelect asis at the left lung base.\. br\ Mg Observa Value Referen Units Interpr Notes Date tion ce etation Range Magnesi 2.1 1.6 - mg/dL No No Sep 20 um 2.4 informa informa 2015 [Moles/ tion in tion in 2:44 AM volume] source source in data data Serum or Plasma Auto Diff Observa Value Referen Units Interpr Notes Date tion ce etation Range Neutrop 77.9 No % No No Sep 20 hils informa informa informa 2016 [#/volu tion in tion in tion in 2:29 AM me] in source source source Blood data data data by Automat ed count Lymphoc 16.2 No % No No Sep 20 ytes informa informa informa 2016 [#/volu tion in tion in tion in 2:29 AM me] in source source source Blood data data data by Automat ed count Monocyt 4.5 No % No No Sep 20 es informa informa informa 2016 [#/volu tion in tion in tion in 2:29 AM me] in source source source Blood data data data by Automat ed count Eos 1.0 No % No No Sep 20 Percent informa informa informa 2016 tion in tion in tion in 2:29 AM source source source data data data Baso 0.4 No % No No Sep 20 Percent informa informa informa 2016 tion in tion in tion in 2:29 AM source source source data data data Neut# 8.3 1.8 - x10(3)/ High No Sep 20 7.7 mcL informa 2016 tion in 2:29 AM source data Lymph# 1.7 0.6 - x10(3)/ No No Sep 20 4.8 mcL informa informa 2016 tion in tion in 2:29 AM source source data data Chase# 0.5 0.0 - x10(3)/ No No Sep 20 1.3 mcL informa informa 2016 tion in tion in 2:29 AM source source data data Eos# 0.1 0.0 - x10(3)/ No No Sep 20 0.5 mcL informa informa 2016 tion in tion in 2:29 AM source source data data Baso# 0.0 0.0 - x10(3)/ No No Sep 20 0.2 mcL informa informa 2016 tion in tion in 2:29 AM source source data data CBC Observa Value Referen Units Interpr Notes Date tion ce etation Range LEUKOCY 10.7 4.0 - x10(3)/ No No Sep 20 KAEL 11.0 mcL informa informa 2015 tion in tion in 2:29 AM source source data data Erythro 4.73 4.30 - x10(6)/ No No Sep 20 cytes 5.81 mcL informa informa 2015 [#/volu tion in tion in 2:29 AM me] in source source Blood data data by Automat ed count Hemoglo 14.4 13.5 - gm/dL No No Sep 20 bin 17.1 informa informa 2016 [Mass/v tion in tion in 2:29 AM olume] source source in data data Blood Hematoc 42.4 38.9 - % No No Sep 20 rit 51.6 informa informa 2016 [Volume tion in tion in 2:29 AM source source Fractio data data n] of Blood by Automat ed count Erythro 89.7 82.5 - fL No No Sep 20 cyte 99.8 informa informa 2016 mean tion in tion in 2:29 AM corpusc source source ular data data volume [Entiti c volume] by Automat ed count Erythro 30.5 27.0 - pg No No Sep 20 cyte 34.3 informa informa 2016 mean tion in tion in 2:29 AM corpusc source source ular data data hemoglo bin [Entiti c mass] by Automat ed count Erythro 34.0 32.1 - gm/dL No No Sep 20 cyte 35.3 informa informa 2016 mean tion in tion in 2:29 AM corpusc source source ular data data hemoglo bin concent ration [Mass/v olume] by Automat ed count Erythro 12.5 11.5 - % No No Sep 20 cyte 15.0 informa informa 2016 distrib tion in tion in 2:29 AM ution source source width data data [Ratio] by Automat ed count Platele 366 144 - x10(3)/ No No Sep 20 ts 423 mcL informa informa 2016 [#/volu tion in tion in 2:29 AM me] in source source Blood data data by Automat ed count MPV 6.9 6.8 - fL No No Sep 20 10.8 informa informa 2016 tion in tion in 2:29 AM source source data data EK EKG 12 LEAD Observa Value Referen Units Interpr Notes Date tion ce etation Range Station No No No No Sep 20 leona ECG informa informa informa informa 2016 tion in tion in tion in tion in 2:05 AM Study\. source source source source br\St. 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
--- OUTSIDE RECORDS SUMMARY | 2016-12-22 02:03 | External Medical Summary Rpt ---
[...] in 11:24 source source AM data data Larue# 0.5 0.0 - x10(3)/ No No Dec [...] in 2:29 AM source source data data Larue# 0.5 0.0 - x10(3)/ No No Sep [...]
[2016-12-22 02:12] LABS: HEMOGLOBIN 14.3 g/dL (14.1-18.0); LYMPH # 2.5 K/mm3 (0.7-4.5); LYMPH % 30.2 % (10-50)
[2016-12-22] MEDS ORDERED: ST. JOSEPH ASPI81 M1 PO (02:12)
[2016-12-22 02:34] LABS: BUN 15 mg/dL (7-18)
[2016-12-22 02:36] LABS: GFR (ESTIMATED) 106 ML/MIN (>60)
--- NOTE | 2016-12-22 02:51 | Emergency Room Report ---
History of Present Illness Time Seen by MD Santoyo Presenting Problem in Triage Pt arrived:Walked Presenting Problem:PT STATES HE WOKE UP AT 0230 WITH AN IRREGULAR HEART BEAT, DIAPHORETIC, NAUSEATED, SOB, PT STATES HE HAS ANXIETY. 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 N Clinical Suspician of Infection? N Mental Status: 1 - Regular (Normal Baseline) Sepsis Risk:Possible Sepsis Risk Have you (or family members/close friends) recently traveled outside the [place]? N If Yes, where/when: Have you had exposure to infectious disease within the past month? N TB? Other? Specify: Source patient, RN notes reviewed, old records Exam Limitations no limitations Comment pt with hx of palpatations with no chest pain and no syncope tonight Cardiac Chest Pain Chest pain indicative of cardiac No Timing/Duration this evening Severity moderate ALLERGIES Coded Allergies: buspirone (From [employer]) (Intermediate, I-HIVES 04/18/16) peanut oil (ANAPHYLAXIS 04/18/16) Home Medications Reported Medications MAGNESIUM OXIDE (Magnesium Oxide) 400 MG PO DAILY METOPROLOL SUCCINATE (Metoprolol ER 200MG) 200 MG PO DAILY #30 HYDROCODONE/ACETAMINOPHEN (Hydrocodon-Acetaminophn 10-325) 1 TAB PO PRN PRN PAIN #60 Doxepin Hcl (Doxepin 25MG Capsule) 25 MG PO QHS #30 Aspirin ([place] Aspirin) 81 MG PO DAILY History Medical History General CAD? Yes Angina: Yes [place]: No Hypertension? Yes Hyperlipidemia? Yes CHF? No DVT? No PE? No COPD? No Asthma? No Anemia? No GERD? Yes Gastric ulcers? No GI Bleed? No Hernia? No Thyroid Problems? No Hypothyroidism? No CVA? No Seizures? No Diabetes? No Insulin Dependent: No Insulin Pump: No Home FSBS? No Renal Insuffiency? No End Stage Renal Disease? No UTI? No Stones? No BPH? No GB Disease: Yes Nephritic Syndrome? No Asplenia? No Hepatitis? No Sickle Cell Disease? No Arthritis? No Migraines? No Cataracts? No Glaucoma? No MRSA? No HIV? No TB? No Anxiety? Yes Depression? Yes Cancer? No More? 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 Respiratory denies cough, denies shortness of breath Cardiovascular see HPI, denies chest pain, palpitations, denies syncope Gastrointestinal denies abdominal pain, denies diarrhea, denies vomiting Genitourinary denies: dysuria, frequency, hesitancy, hematuria. Musculoskeletal denies back pain, denies joint pain, denies joint swelling, denies neck pain Skin denies rash Psychiatric/Neurological denies headache, denies seizure Physical Exam Vital Signs Vital Signs Date Time Temp Pulse Resp B/P Pulse O2 O2 Flow FiO2 Ox Delivery Rate 12/22 0221 93 20 150/100 96 12/22 0143 97.7 101 20 148/86 94 - WBC >12,000 or <4,000 or 10% bands? 2 or more SIRS Criteria Met? B/P:150/100 MAP:106 Creatinine >2.0? UA output<0.5ml/kg/hr for 2 hrs? Platelet count >100,000? Lactate >2.0mmol/1? INR >1.2 or PTT > than 60 sec? Evidence of Organ Dysfunction? Provider documented clinical suspician of infection? N Sepsis Criteria Count: 2 Sepsis Risk: Possible Sepsis Risk General Appearance no apparent distress Eye Exam - bilateral eye PERRL, bilateral eye EOMI Ear, Nose, Throat normal ENT inspection Neck supple Respiratory Status No: respiratory distress. Lung Sounds bilateral: lungs clear. 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 No Results/Orders Laboratory Tests 12/22/16 0151: Sodium 137, Potassium 2.9 *L, Chloride 101, Carbon Dioxide 24, BUN 15, Creatinine 0.8, Estimated Creat Clear 209 H, Estimated GFR (MDRD) 106, Glucose 137 H, Calcium 9.1, Total Bilirubin 0.2, AST 24, ALT 62, Alkaline Phosphatase 91, Creatine Kinase 147, CK-MB (CK-2) Rel Index 0.3, CK and CKMB Interp 0.5, Troponin I < 0.02, Total Protein 7.8, Albumin 3.9, Globulin 3.9 H, Albumin/ Globulin Ratio 1.0 L, WBC 8.4, RBC 4.78, Hgb 14.3, Hct 42.6, MCV 89.2, RDW 12.2 , Plt Count 356, MPV 7.2 L, Gran % 61.7, Gran # 5.2, Lymphocytes % 30.2, Monocytes % 4.5, Eosinophils % 3.2, Basophils % 0.4, Lymphocytes # 2.5, Monocytes # 0.4, Eosinophils # 0.3, Basophils # 0.0, PUBS MCHC 33.6, MCH 30.0 Current Medication Orders Sig/Pallavi Start time Last Medication Dose Route Stop Time Status Admin Sodium Chloride 10 ML PRN PRN 12/22 199 AC IV 12/23 154 Orders Procedure Date/time Status ELECTROCARDIOGRAM REQUEST 12/23 155 Active CHEST(2 VIEWS-NOT PORTABLE) 12/23 155 Active IV SALINE LOCK 12/23 155 Active CBC WITH AUTO DIFF 12/23 155 Complete CARDIAC ENZYMES 12/23 155 Complete CHEM 12 PROFILE 12/23 155 Complete 12 LEAD EKG-SHERWIN (INITIAL) 12/22 UNK Active 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 ST/Twave chgs XRAY/CT/US XRAY/CT/US XRAY chest XR interpretation by reviewed by me Xray Results normal/NAD Departure Departure Time of Disposition 0238 Disposition DC Home or Self Care(routine) Clinical Impression Primary Impression: Heart palpitations Secondary Impressions: Hypokalemia Condition STABLE Referrals DARIANA RUST (Family) Patient Instructions DI for Palpitations Additional Instructions use meds and call your dr for follow up Discharge Counseling Counseled pt/family regarding diagnosis, test results, medications/RX, follow up needs ED Critical Care Critical Care No at [id number]
--- NOTE | 2016-12-22 02:51 | Emergency Room Report ---
History of Present Illness Time Seen by MD Santoyo Presenting Problem in Triage Pt arrived:Walked Presenting Problem:PT STATES HE WOKE UP AT 0230 WITH AN IRREGULAR HEART BEAT, DIAPHORETIC, NAUSEATED, SOB, PT STATES HE HAS ANXIETY. 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 N Clinical Suspician of Infection? N Mental Status: 1 - Regular (Normal Baseline) Sepsis Risk:Possible Sepsis Risk Have you (or family members/close friends) recently traveled outside the [place]? N If Yes, where/when: Have you had exposure to infectious disease within the past month? N TB? Other? Specify: Source patient, RN notes reviewed, old records Exam Limitations no limitations Comment pt with hx of palpatations with no chest pain and no syncope tonight Cardiac Chest Pain Chest pain indicative of cardiac No Timing/Duration this evening Severity moderate ALLERGIES Coded Allergies: buspirone (From [employer]) (Intermediate, I-HIVES 04/18/16) peanut oil (ANAPHYLAXIS 04/18/16) Home Medications Reported Medications MAGNESIUM OXIDE (Magnesium Oxide) 400 MG PO DAILY METOPROLOL SUCCINATE (Metoprolol ER 200MG) 200 MG PO DAILY #30 HYDROCODONE/ACETAMINOPHEN (Hydrocodon-Acetaminophn 10-325) 1 TAB PO PRN PRN PAIN #60 Doxepin Hcl (Doxepin 25MG Capsule) 25 MG PO QHS #30 Aspirin ([place] Aspirin) 81 MG PO DAILY History Medical History General CAD? Yes Angina: Yes [place]: No Hypertension? Yes Hyperlipidemia? Yes CHF? No DVT? No PE? No COPD? No Asthma? No Anemia? No GERD? Yes Gastric ulcers? No GI Bleed? No Hernia? No Thyroid Problems? No Hypothyroidism? No CVA? No Seizures? No Diabetes? No Insulin Dependent: No Insulin Pump: No Home FSBS? No Renal Insuffiency? No End Stage Renal Disease? No UTI? No Stones? No BPH? No GB Disease: Yes Nephritic Syndrome? No Asplenia? No Hepatitis? No Sickle Cell Disease? No Arthritis? No Migraines? No Cataracts? No Glaucoma? No MRSA? No HIV? No TB? No Anxiety? Yes Depression? Yes Cancer? No More? 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 Respiratory denies cough, denies shortness of breath Cardiovascular see HPI, denies chest pain, palpitations, denies syncope Gastrointestinal denies abdominal pain, denies diarrhea, denies vomiting Genitourinary denies: dysuria, frequency, hesitancy, hematuria. Musculoskeletal denies back pain, denies joint pain, denies joint swelling, denies neck pain Skin denies rash Psychiatric/Neurological denies headache, denies seizure Physical Exam Vital Signs Vital Signs Date Time Temp Pulse Resp B/P Pulse O2 O2 Flow FiO2 Ox Delivery Rate 12/22 0221 93 20 150/100 96 12/22 0143 97.7 101 20 148/86 94 - WBC >12,000 or <4,000 or 10% bands? 2 or more SIRS Criteria Met? B/P:150/100 MAP:106 Creatinine >2.0? UA output<0.5ml/kg/hr for 2 hrs? Platelet count >100,000? Lactate >2.0mmol/1? INR >1.2 or PTT > than 60 sec? Evidence of Organ Dysfunction? Provider documented clinical suspician of infection? N Sepsis Criteria Count: 2 Sepsis Risk: Possible Sepsis Risk General Appearance no apparent distress Eye Exam - bilateral eye PERRL, bilateral eye EOMI Ear, Nose, Throat normal ENT inspection Neck supple Respiratory Status No: respiratory distress. Lung Sounds bilateral: lungs clear. 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 No Results/Orders Laboratory Tests 12/22/16 0151: Sodium 137, Potassium 2.9 *L, Chloride 101, Carbon Dioxide 24, BUN 15, Creatinine 0.8, Estimated Creat Clear 209 H, Estimated GFR (MDRD) 106, Glucose 137 H, Calcium 9.1, Total Bilirubin 0.2, AST 24, ALT 62, Alkaline Phosphatase 91, Creatine Kinase 147, CK-MB (CK-2) Rel Index 0.3, CK and CKMB Interp 0.5, Troponin I < 0.02, Total Protein 7.8, Albumin 3.9, Globulin 3.9 H, Albumin/ Globulin Ratio 1.0 L, WBC 8.4, RBC 4.78, Hgb 14.3, Hct 42.6, MCV 89.2, RDW 12.2 , Plt Count 356, MPV 7.2 L, Gran % 61.7, Gran # 5.2, Lymphocytes % 30.2, Monocytes % 4.5, Eosinophils % 3.2, Basophils % 0.4, Lymphocytes # 2.5, Monocytes # 0.4, Eosinophils # 0.3, Basophils # 0.0, PUBS MCHC 33.6, MCH 30.0 Current Medication Orders Sig/Pallavi Start time Last Medication Dose Route Stop Time Status Admin Sodium Chloride 10 ML PRN PRN 12/22 199 AC IV 12/23 154 Orders Procedure Date/time Status ELECTROCARDIOGRAM REQUEST 12/23 155 Active CHEST(2 VIEWS-NOT PORTABLE) 12/23 155 Active IV SALINE LOCK 12/23 155 Active CBC WITH AUTO DIFF 12/23 155 Complete CARDIAC ENZYMES 12/23 155 Complete CHEM 12 PROFILE 12/23 155 Complete 12 LEAD EKG-SHERWIN (INITIAL) 12/22 UNK Active 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 ST/Twave chgs XRAY/CT/US XRAY/CT/US XRAY chest XR interpretation by reviewed by me Xray Results normal/NAD Departure Departure Time of Disposition 0238 Disposition DC Home or Self Care(routine) Clinical Impression Primary Impression: Heart palpitations Secondary Impressions: Hypokalemia Condition STABLE Referrals DARIANA RUST (Family) Patient Instructions DI for Palpitations Additional Instructions use meds and call your dr for follow up Discharge Counseling Counseled pt/family regarding diagnosis, test results, medications/RX, follow up needs ED Critical Care Critical Care No at [phone]
[2016-12-22 03:37] VITALS: BP 148/91
--- NOTE | 2016-12-22 21:40 | RADIOLOGY REPORT PS360 ---
CHEST(2 VIEWS-NOT PORTABLE) Ordering physician: Aman Lezama MD Age: 41 years Male INDICATION: chest symptomsCHEST PAIN palpitations PROCEDURE: CHEST(2 VIEWS-NOT PORTABLE) COMPARISON 08/16/2016 CXR FINDINGS: . Lungs adequate expanded and clear with nothing definitely acute. . No focal pneumonia.. No pneumothorax. No pleural effusion . Heart appears slightly larger. Less optimal inspiration today Mild cardiomegaly is slightly more apparent today but this may be due to less optimal inspiration. . Normal pulmonary vascularity Loop recorder projected over the left Hilar and mediastinal structures appear satisfactory. Chest wall unremarkable. T-spine intact. IMPRESSION -----lungs clear no active disease. Borderline to mild cardiomegaly. With Heart size perhaps slight be accentuated by the less inspiration today. Normal pulmonary vascularity.
== END 2016-12-22 03:31 | disposition home or self-care (01) ==
LOC: ER 01:42
PROVIDERS: Emergency Medicine
DX: R00.2 Palpitations (principal); E87.6 Hypokalemia; K21.9 Gastro-esophageal reflux disease without esophagitis

== ENCOUNTER 2017-01-01 09:23 | Emergency (ER) | payer MEDICARE ==
[~2017-01-01] VITALS: Ht 182.9 cm; Wt 124.3 kg
[~2017-01-01 09:23] MED LIST changes: +ST. JOSEPH ASPI81 M1 PO
--- NOTE | 2017-01-01 09:42 | Emergency Room Report ---
History of Present Illness Time Seen by [id number] Presenting Problem in Triage Pt arrived:Walked Presenting Problem:PT WAS ON HIS WAY TO GET HIS LABS DRAWN WHEN HE HAD AN EPISODE OF DIZZY, LIGHTHEADEDNESS, AND FELT IF HIS HEART WAS SKIPPING A BEAT. 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 N Clinical Suspician of Infection? N Mental Status: 1 - Regular (Normal Baseline) Sepsis Risk:Low Sepsis Risk Have you (or family members/close friends) recently traveled outside the [place]? N If Yes, where/when: Have you had exposure to infectious disease within the past month? TB? Other? Specify: Source patient, RN notes reviewed, RN/MD Exam Limitations no limitations Comment Jaylan is a 41 year old male patient presented to the ER with palpitations, onset while driving this morning to the hospital to have his blood drawn. He has an appointment with Dr. Anu Valera within the next few days. Any chest pain or shots of breath. ALLERGIES Coded Allergies: buspirone (From [employer]) (Intermediate, I-HIVES 04/18/16) peanut oil (ANAPHYLAXIS 04/18/16) Home Medications Reported Medications MAGNESIUM OXIDE (Magnesium Oxide) 400 MG PO DAILY METOPROLOL SUCCINATE (Metoprolol ER 200MG) 200 MG PO DAILY #30 Doxepin Hcl (Doxepin 25MG Capsule) 25 MG PO QHS #30 Aspirin ([place] Aspirin) 81 MG PO DAILY Clonazepam (Klonopin 0.5MG) 0.5 MG NG QHS History Medical History General CAD? Yes Angina: Yes [place]: No Hypertension? Yes Hyperlipidemia? Yes CHF? No DVT? No PE? No COPD? No Asthma? No Anemia? No GERD? Yes Gastric ulcers? No GI Bleed? No Hernia? No Thyroid Problems? No Hypothyroidism? No CVA? No Seizures? No Diabetes? No Insulin Dependent: No Insulin Pump: No Home FSBS? No Renal Insuffiency? No End Stage Renal Disease? No UTI? No Stones? No BPH? No GB Disease: Yes Nephritic Syndrome? No Asplenia? No Hepatitis? No Sickle Cell Disease? No Arthritis? No Migraines? No Cataracts? No Glaucoma? No MRSA? No HIV? No TB? No Anxiety? Yes Depression? Yes Cancer? No More? 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 No: respiratory distress. Lung Sounds bilateral: normal breath sounds, lungs clear. 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 No Comment 1015 - patient medically stable, in no acute distress. Gave him a copy of his blood work obtained today to take to his it administrative assistant. He has a few LEFT over potassium supplements at home which he will take 1 daily for the next 3-4 days, as his potassium level was 3.6 today. Results/Orders Laboratory Tests 01/01/17 0933: Sodium 136, Potassium 3.6, Chloride 100, Carbon Dioxide 27, BUN 14, Creatinine 1.0, Estimated Creat Clear 167, Estimated GFR (MDRD) 82, Glucose 103, Calcium 9.1, Total Bilirubin 0.5, AST 33, ALT 80 H, Alkaline Phosphatase 108, Creatine Kinase 135, CK-MB (CK-2) Rel Index 0.4, CK and CKMB Interp < 0.5, Troponin I < 0.02, Total Protein 8.4 H, Albumin 4.3, Globulin 4.1 H, Albumin/Globulin Ratio 1.0 L, Triglycerides 206 H, Cholesterol 239 H, LDL Cholesterol 156.8 H, VLDL Cholesterol 41.2 H, HDL Cholesterol 41.0, WBC 9.8, RBC 5.20, Hgb 15.2, Hct 47.0 , MCV 90.4, RDW 12.4, Plt Count 409, MPV 7.1 L, Gran % 62.3, Gran # 6.1, Lymphocytes % 30.5, Monocytes % 4.4, Eosinophils % 2.4, Basophils % 0.4, Lymphocytes # 3.0, Monocytes # 0.4, Eosinophils # 0.2, Basophils # 0.0, PUBS MCHC 32.4, MCH 29.3 Current Medication Orders Sig/Pallavi Start time Last Medication Dose Route Stop Time Status Admin Aspirin 324 MG ONCE ONE 01/01 945 DC 01/01 PO 01/01 946 0946 Sodium Chloride 10 ML PRN PRN 01/01 945 DCD IV 01/02 937 Aspirin 0 .STK-MED ONE 01/02 940 DC .ROUTE Orders Procedure Date/time Status ELECTROCARDIOGRAM REQUEST 01/01 937 Active CHEST-PORTABLE 01/01 937 Active IV SALINE LOCK 01/01 937 Active LIPID PROFILE 01/01 937 Complete CBC WITH AUTO DIFF 01/01 937 Complete CARDIAC ENZYMES 01/01 937 Complete CHEM 12 PROFILE 01/01 937 Complete 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 of ischemic chgs, no ectopy, normal QRS, normal IN, no EKG for comparison, non-spec. ST/Twave chgs, ST elevation, ST depression, LBBB, RBBB, ectopy, abnormal Q waves XRAY/CT/US XRAY/CT/US XRAY chest XR interpretation by reviewed by me Xray Results no infiltrates, normal heart size, normal lung inflation bruce Departure Departure Time of Disposition 1024 Disposition DC Home or Self Care(routine) Clinical Impression Primary Impression: Palpitations Condition STABLE Referrals ANU VALERA as previously scheduled DARIANA RUST (Family) Patient Instructions DI for Palpitations Additional Instructions Please follow-up with your it administrative assistant as previously scheduled. Discharge Counseling Counseled pt/family regarding diagnosis, test results, medications/RX, home care, follow up needs Comment Please follow-up with your it administrative assistant as previously scheduled. ED Critical Care Critical Care No at 1037
--- NOTE | 2017-01-01 09:42 | Emergency Room Report ---
History of Present Illness Time Seen by 0941 Presenting Problem in Triage Pt arrived:Walked Presenting Problem:PT WAS ON HIS WAY TO GET HIS LABS DRAWN WHEN HE HAD AN EPISODE OF DIZZY, LIGHTHEADEDNESS, AND FELT IF HIS HEART WAS SKIPPING A BEAT. 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 N Clinical Suspician of Infection? N Mental Status: 1 - Regular (Normal Baseline) Sepsis Risk:Low Sepsis Risk Have you (or family members/close friends) recently traveled outside the [place]? N If Yes, where/when: Have you had exposure to infectious disease within the past month? TB? Other? Specify: Source patient, RN notes reviewed, RN/MD Exam Limitations no limitations Comment Jaylan is a 41 year old male patient presented to the ER with palpitations, onset while driving this morning to the hospital to have his blood drawn. He has an appointment with Dr. Anu Valera within the next few days. Any chest pain or shots of breath. ALLERGIES Coded Allergies: buspirone (From BUSPAR) (Intermediate, I-HIVES 04/18/16) peanut oil (ANAPHYLAXIS 04/18/16) Home Medications Reported Medications MAGNESIUM OXIDE (Magnesium Oxide) 400 MG PO DAILY METOPROLOL SUCCINATE (Metoprolol ER 200MG) 200 MG PO DAILY #30 Doxepin Hcl (Doxepin 25MG Capsule) 25 MG PO QHS #30 Aspirin (Grady Aspirin) 81 MG PO DAILY Clonazepam (Klonopin 0.5MG) 0.5 MG NG QHS History Medical History General CAD? Yes Angina: Yes IA: No Hypertension? Yes Hyperlipidemia? Yes CHF? No DVT? No PE? No COPD? No Asthma? No Anemia? No GERD? Yes Gastric ulcers? No GI Bleed? No Hernia? No Thyroid Problems? No Hypothyroidism? No CVA? No Seizures? No Diabetes? No Insulin Dependent: No Insulin Pump: No Home FSBS? No Renal Insuffiency? No End Stage Renal Disease? No UTI? No Stones? No BPH? No GB Disease: Yes Nephritic Syndrome? No Asplenia? No Hepatitis? No Sickle Cell Disease? No Arthritis? No Migraines? No Cataracts? No Glaucoma? No MRSA? No HIV? No TB? No Anxiety? Yes Depression? Yes Cancer? No More? 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 No: respiratory distress. Lung Sounds bilateral: normal breath sounds, lungs clear. 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 No Comment 1015 - patient medically stable, in no acute distress. Gave him a copy of his blood work obtained today to take to his skein inspector. He has a few LEFT over potassium supplements at home which he will take 1 daily for the next 3-4 days, as his potassium level was 3.6 today. Results/Orders Laboratory Tests 01/01/17 0933: Sodium 136, Potassium 3.6, Chloride 100, Carbon Dioxide 27, BUN 14, Creatinine 1.0, Estimated Creat Clear 167, Estimated GFR (MDRD) 82, Glucose 103, Calcium 9.1, Total Bilirubin 0.5, AST 33, ALT 80 H, Alkaline Phosphatase 108, Creatine Kinase 135, CK-MB (CK-2) Rel Index 0.4, CK and CKMB Interp < 0.5, Troponin I < 0.02, Total Protein 8.4 H, Albumin 4.3, Globulin 4.1 H, Albumin/Globulin Ratio 1.0 L, Triglycerides 206 H, Cholesterol 239 H, LDL Cholesterol 156.8 H, VLDL Cholesterol 41.2 H, HDL Cholesterol 41.0, WBC 9.8, RBC 5.20, Hgb 15.2, Hct 47.0 , MCV 90.4, RDW 12.4, Plt Count 409, MPV 7.1 L, Gran % 62.3, Gran # 6.1, Lymphocytes % 30.5, Monocytes % 4.4, Eosinophils % 2.4, Basophils % 0.4, Lymphocytes # 3.0, Monocytes # 0.4, Eosinophils # 0.2, Basophils # 0.0, PUBS MCHC 32.4, MCH 29.3 Current Medication Orders Sig/Pallavi Start time Last Medication Dose Route Stop Time Status Admin Aspirin 324 MG ONCE ONE 01/01 945 DC 01/01 PO 01/01 946 0946 Sodium Chloride 10 ML PRN PRN 01/01 945 DCD IV 01/02 937 Aspirin 0 .STK-MED ONE 01/02 940 DC .ROUTE Orders Procedure Date/time Status ELECTROCARDIOGRAM REQUEST 01/01 937 Active CHEST-PORTABLE 01/01 937 Active IV SALINE LOCK 01/01 937 Active LIPID PROFILE 01/01 937 Complete CBC WITH AUTO DIFF 01/01 937 Complete CARDIAC ENZYMES 01/01 937 Complete CHEM 12 PROFILE 01/01 937 Complete CM/EKG CM/tele rn Rhythm Normal Sinus Rhythm Rate 88 Ectopy No Comments No acute ischemic changes EKG rate, NSR, rhythm, no evid. of ischemic chgs, no ectopy, normal QRS, normal MI, no EKG for comparison, non-spec. ST/Twave chgs, ST elevation, ST depression, LBBB, RBBB, ectopy, abnormal Q waves XRAY/CT/US XRAY/CT/US XRAY chest XR interpretation by reviewed by me Xray Results no infiltrates, normal heart size, normal lung inflation bruce Departure Departure Time of Disposition 1024 Disposition DC Home or Self Care(routine) Clinical Impression Primary Impression: Palpitations Condition STABLE Referrals ANU VALERA as previously scheduled DARIANA RUST (Family) Patient Instructions DI for Palpitations Additional Instructions Please follow-up with your skein inspector as previously scheduled. Discharge Counseling Counseled pt/family regarding diagnosis, test results, medications/RX, home care, follow up needs Comment Please follow-up with your skein inspector as previously scheduled. ED Critical Care Critical Care No at 1037
[2017-01-01] MEDS ORDERED: KLONOPIN 0.5MG0.5 MG NG (09:43)
[2017-01-01 09:46] LABS: HEMOGLOBIN 15.2 g/dL (14.1-18.0); LYMPH % 30.5 % (10-50)
--- OUTSIDE RECORDS SUMMARY | 2017-01-01 09:48 | External Medical Summary Rpt | CCD ---
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 I48.91 UNSPECIFIED 12-25-2016 ATRIAL FIBRILLATIO N R11.2 NAUSEA WITH 12-25-2016 VOMITING, UNSPECIFIED Z87.820 PERSONAL 12-25-2016 HISTORY OF TRAUMATIC BRAIN INJURY Z88.8 ALLERGY 12-25-2016 STATUS TO OTHER DRUGS, MEDICAMENTS AND BIOLOGICAL SUBSTANCES STATUS R06.02 SHORTNESS 11-28-2016 OF BREATH F41.9 ANXIETY 10-08-2016 DISORDER, UNSPECIFIED R00.2 PALPITATION 10-08-2016 S E87.5 HYPERKALEMI 08-28-2016 A I49.1 ATRIAL 08-23-2016 PREMATURE DEPOLARIZAT ION I49.3 VENTRICULAR 08-23-2016 PREMATURE DEPOLARIZAT ION Z79.899 OTHER LONG 08-23-2016 TERM (CURRENT) DRUG THERAPY I49.9 CARDIAC 08-21-2016 ARRHYTHMIA, UNSPECIFIED E78.4 OTHER 08-02-2016 HYPERLIPIDE NICHOLE R73.9 HYPERGLYCEM 08-02-2016 IA, UNSPECIFIED J40 BRONCHITIS, 07-18-2016 NOT SPECIFIED ACUTE OR CHRONIC R05 COUGH 07-18-2016 F17.220 NICOTINE 07-16-2016 DEPENDENCE, CHEWING TOBACCO, UNCOMPLICAT ED G89.18 OTHER ACUTE 07-16-2016 POSTPROCEDU RAL PAIN J18.9 PNEUMONIA, 07-16-2016 UNSPECIFIED ORGANISM E78.5 HYPERLIPIDE 06-18-2016 NICHOLE, UNSPECIFIED G47.30 SLEEP 06-18-2016 APNEA, UNSPECIFIED I10 ESSENTIAL 06-18-2016 (PRIMARY) HYPERTENSIO N K21.0 GASTRO-ESOP 06-18-2016 HAGEAL REFLUX DISEASE WITH ESOPHAGITIS K29.80 DUODENITIS 06-18-2016 WITHOUT BLEEDING K31.9 DISEASE OF 06-18-2016 STOMACH AND DUODENUM, UNSPECIFIED R10.13 EPIGASTRIC 06-18-2016 PAIN R10.9 UNSPECIFIED 06-18-2016 ABDOMINAL PAIN R13.10 DYSPHAGIA, 06-18-2016 UNSPECIFIED R07.89 OTHER CHEST 05-14-2016 PAIN R07.9 CHEST PAIN, 05-14-2016 UNSPECIFIED R11.0 NAUSEA 05-14-2016 Z72.0 TOBACCO USE 05-14-2016 J02.9 ACUTE 04-29-2016 PHARYNGITIS , UNSPECIFIED R09.81 NASAL 04-29-2016 CONGESTION R53.81 OTHER 04-29-2016 MALAISE R53.83 OTHER 04-29-2016 FATIGUE 305.1 305.1 08-25-2012 [place] TOBACCO USE [facility] 466.0 466.0 ACUTE 08-25-2012 [place] BRONCHITIS [facility] B34.9 VIRAL INFECTION, UNSPECIFIED E86.0 DEHYDRATION F41.1 GENERALIZED ANXIETY DISORDER H60.91 UNSPECIFIED OTITIS EXTERNA, RIGHT EAR H83.90 UNSPECIFIED DISEASE OF INNER EAR, UNSPECIFIED EAR [id number] J06.9 ACUTE UPPER RESPIRATORY INFECTION, UNSPECIFIED K82.9 DISEASE OF GALLBLADDER , UNSPECIFIED M25.511 PAIN IN RIGHT SHOULDER M54.2 CERVICALGIA M75.80 OTHER SHOULDER LESIONS, UNSPECIFIED SHOULDER N28.9 DISORDER OF KIDNEY AND URETER, UNSPECIFIED R00.0 TACHYCARDIA , UNSPECIFIED R10.11 RIGHT UPPER QUADRANT PAIN R11.10 VOMITING, UNSPECIFIED R20.0 ANESTHESIA OF SKIN R42 DIZZINESS AND GIDDINESS S14.3XXA INJURY OF BRACHIAL PLEXUS, INITIAL ENCOUNTER S29.012A STRAIN OF MUSCLE AND TENDON OF BACK WALL OF THORAX, INIT S46.911A STRAIN UNSP MUSC/FASC/T END AT SHLDR/UP ARM, RIGHT ARM, INIT Z53.21 PROC/TRTMT NOT CRD OUT D/T PT LV BEF SEEN BY [facility] CARE PROV Z86.79 PERSONAL HISTORY OF OTHER DISEASES OF THE CIRCULATORY SYSTEM Allergies, Adverse Reactions, Alerts Type Drug Allergy [...] Order Detail nces retati t Range on Comprehensive metabolic panel (12-22-2016 01:51) Protein = 7.8 6.4-8.2 complet total 017 gm/dL ed ser/genny 01:51 s ALT = 62 12-78 complet (SGPT) 017 U/L ed ser/genny 01:51 s Serum = 24 15-37 complet or 017 U/L ed plasma 01:51 asparta te aminotr ansfera Serum = 137 136-145 complet sodium 017 mmoL/L ed measure 01:51 ment Serum = 2.9 3.5-5.1 complet potassi 017 mmoL/L ed um 01:51 measure ment Comment: CRITICAL RESULTS Comment: RESULTS CALLED TO: Shabnam [facility] [employer] 12/22/16 0236 Comment: Hardeep Altamirano Serum = 137 74-106 complet or 017 mg/dL ed plasma 01:51 glucose measure ment (mas Serum = 3.9 1.3-3.2 complet globuli 017 gm/dL ed n 01:51 measure ment (mass/v olume) Estimat = 106 >60 complet ed 017 ML/MIN ed glomeru 01:51 lar filtrat ion rate (GF Comment: REFERENCE RANGE: >60 ML/MIN/1.73 SQUARE METERS Comment: If this patient is -Eth[place]ian, then multiply the Comment: result by 1.210. Estimat = 209 50-200 complet ion of 017 ML/MIN ed creatin 01:51 ine renal clearan ce Serum = 0.8 0.70-1. complet or 017 mg/dL 30 ed plasma 01:51 creatin ine measure ment ( Carbon = 24 21.0-32 complet dioxide 017 mmoL/L .0 ed 01:51 measure ment Serum = 101 98-107 complet or 017 mmoL/L ed plasma 01:51 chlorid e measure ment (mo Serum = 9.1 8.5-10. complet or 017 mg/dL 1 ed plasma 01:51 calcium measure ment (mas Serum = 15 7-18 complet or 017 mg/dL ed plasma 01:51 urea nitroge n measure men Serum = 0.2 0.2-1.0 complet or 017 mg/dL ed plasma 01:51 total bilirub in measure m Serum = 91 46-116 complet or 017 U/L ed plasma 01:51 alkalin e phospha tase ana Serum = 3.9 3.4-5.0 complet or 017 gm/dL ed plasma 01:51 albumin measure ment (mas Serum = 1.0 1.1-1.8 complet or 017 ed plasma 01:51 albumin /globul in mass ra Cardiac enzymes (12-22-2016 01:51) Serum = 147 39-308 complet or 017 U/L ed plasma 01:51 creatin e kinase measure m Serum < 0.02 0.00-0. complet or 017 ng/mL 06 ed plasma 01:51 troponi n i.cardi ac measu Serum = 0.5 0.0-3.6 complet or 017 ng/mL ed plasma 01:51 creatin e kinase MB measu Serum = 0.3 0-4.0 complet or 017 U/L ed plasma 01:51 creatin e kinase MB (CK-M CBC w auto diff (12-22-2016 01:51) Granulo = 61.7 37.0-80 complet cyte 017 % .0 ed percent 01:51 age Blood = 5.2 1.3-8.0 complet granulo 017 K/mm3 ed cytes 01:51 automat ed count (numb Automat = 3.2 % 0.1-12. complet ed 017 0 ed blood 01:51 eosinop hils/10 0 leukocy t Automat = 0.3 0.0-0.4 complet ed 017 K/mm3 ed blood 01:51 eosinop hil count Baso % = 0.4 % 0.1-2.0 complet 017 ed 01:51 Automat = 0.0 0-0.2 complet ed 017 K/MM3 ed blood 01:51 basophi l count (count/ vo Blood = 8.4 4.8-10. complet leukocy 017 K/MM3 8 ed charan 01:51 count (number /volume ) Automat = 12.2 11.5-17 complet ed 017 % .5 ed erythro 01:51 cyte distrib ution width Red = 4.78 4.6-6.2 complet blood 017 M/mm3 ed cell 01:51 count Blood = 356 142-424 complet platele 017 K/mm3 ed t count 01:51 Automat = 7.2 7.4-10. complet ed 017 fl 4 ed blood 01:51 platele t mean volume ana [place] % = 4.5 % 1.7-9.3 complet 017 ed 01:51 Absolut = 0.4 0.1-1.0 complet e 017 K/mm3 ed monocyt 01:51 e count Automat = 89.2 82.2-97 complet ed 017 fl .8 ed erythro 01:51 cyte mean corpusc ular v Automat = 33.6 31.8-35 complet ed 017 g/dl .4 ed erythro 01:51 cyte mean corpusc ular h Mean = 30.0 27-31.2 complet corpusc 017 pg ed ular 01:51 hemoglo bin ([facility]) determ Lymphoc = 30.2 10-50 complet yte 017 % ed count, 01:51 blood, automat ed Absolut = 2.5 0.7-4.5 complet e 017 K/mm3 ed lymphoc 01:51 yte count Blood = 14.3 14.1-18 complet hemoglo 017 g/dL .0 ed bin 01:51 measure ment (mass/v olum Blood = 42.6 42.0-52 complet hematoc 017 % .0 ed rit 01:51 (volume fractio n) Hgb A1c Bld (03-13-2016 09:26) Comment: The [place] [employer] recommends maintenance of Hemoglobin A1C at 7.0% or lower. Goals for Hemoglobin A1C reduction may need to be modified if hypoglycemia is a problem. Hgb A1c 5.30 % 4.80-5. complet MFr 017 60 ed Bld 09:26 Encounters Encounter Start End Date Code Location Performer Type Date Emergency ELIAS Cartagena MD (ER) 3 07:12 3 07:37 [facility]
--- OUTSIDE RECORDS SUMMARY | 2017-01-01 09:48 | External Medical Summary Rpt | CCD ---
Author Author , HORACE VU Address Unknown Phone [email or web address] Immunization Name Date Rout CVX Reac Dose Comm Prov Is Faci e tion ent ider Refu lity Give sed n Infl 09-2 Intr 150 0.5 Hist [facility] No [facility] uenz 0-20 amus mL oric ART5 ART5 a 17 cula al 91 91 Quad r Info Inj rmat ion - Sour ce Unsp ecif ied Infl 11-0 Intr 140 0.5 Hist [facility] No [facility] uenz 5-20 amus mL oric JEFFERY AID0 a, 16 cula al AYMA 3938 P-Fr r Info N ee rmat ion - Sour ce Unsp ecif ied
--- OUTSIDE RECORDS SUMMARY | 2017-01-01 09:48 | External Medical Summary Rpt | CCD ---
Author Author , HORACE VU Address Unknown Phone [email or web address] Immunization Name Date Rout CVX Reac Dose [...]
--- OUTSIDE RECORDS SUMMARY | 2017-01-01 09:48 | External Medical Summary Rpt | CCD ---
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 I48.91 UNSPECIFIED [...] R53.83 OTHER 04-29-2016 FATIGUE 305.1 305.1 08-25-2012 [place] TOBACCO USE [facility] 466.0 466.0 ACUTE 08-25-2012 [place] BRONCHITIS [facility] B34.9 VIRAL INFECTION, UNSPECIFIED E86.0 DEHYDRATION F41.1 GENERALIZED ANXIETY DISORDER H60.91 UNSPECIFIED OTITIS EXTERNA, RIGHT EAR H83.90 UNSPECIFIED DISEASE OF INNER EAR, UNSPECIFIED EAR [id number] J06.9 ACUTE UPPER RESPIRATORY INFECTION, UNSPECIFIED K82.9 [...] OUT D/T PT LV BEF SEEN BY [facility] CARE PROV Z86.79 PERSONAL HISTORY OF OTHER [...] RESULTS Comment: RESULTS CALLED TO: Shabnam GALVAN NEMATOLOGIST 12/22/16 0236 Comment: Hardeep Altamirano Serum = 137 74-106 complet or 017 mg/dL ed plasma 01:51 glucose measure ment (mas Serum = 3.9 1.3-3.2 complet globuli 017 gm/dL ed n 01:51 measure ment (mass/v olume) Estimat = 106 >60 complet ed 017 ML/MIN ed glomeru 01:51 lar filtrat ion rate (GF Comment: REFERENCE RANGE: >60 ML/MIN/1.73 SQUARE METERS Comment: If this patient is -[place], then multiply the Comment: result by 1.210. [...] blood 01:51 platele t mean volume ana [place] % = 4.5 % 1.7-9.3 complet 017 [...] Hgb A1c Bld (03-13-2016 09:26) Comment: The [place] Diabetes [employer] recommends maintenance of Hemoglobin A1C [...]
--- OUTSIDE RECORDS SUMMARY | 2017-01-01 09:49 | External Medical Summary Rpt ---
Author Author [facility] [employer], [facility] [employer] Organization [employer] Address Unknown Phone Unavailable Results CBC W Auto Differential panel in Blood Observa Value Referen Units Interpr Notes Date tion ce etation Range Basophils 0 - 0.2 K/MM3 Normal No Dec 22 informati 2016 1:51 [#/volume on in AM ] in source Blood by data Automated count Basophils 0.1 - 2.0 % Normal No Dec 22 /100 informati 2016 1:51 leukocyte on in AM s in source Blood by data Automated count Eosinophi 0.0 - 0.4 K/mm3 Normal No Dec 22 ls informati 2016 1:51 [#/volume on in AM ] in source Blood by data Automated count Eosinophi 0.1 - % Normal No Dec 22 ls/100 12.0 informati 2016 1:51 leukocyte on in AM s in source Blood by data Automated count Granulocy 1.3 - 8.0 K/mm3 Normal No Dec 22 kael informati 2016 1:51 [#/volume on in AM ] in source Blood by data Automated count Granulocy 37.0 - % Normal No Dec 22 kael/100 80.0 informati 2016 1:51 leukocyte on in AM s in source Blood by data Automated count Hematocri 42.0 - % Normal No Dec 22 t [Volume 52.0 informati 2016 1:51 on in AM Fraction] source of Blood data Hemoglobi 14.1 - g/dL Normal No Dec 22 n 18.0 informati 2016 1:51 [Mass/vol on in AM ume] in source Blood data Lymphocyt 0.7 - 4.5 K/mm3 Normal No Dec 22 es informati 2016 1:51 [#/volume on in AM ] in source Unspecifi data ed specimen by Automated count Lymphocyt 10 - 50 % Normal No Dec 22 es informati 2016 1:51 [#/volume on in AM ] in source Unspecifi data ed specimen by Automated count Erythrocy 27 - 31.2 pg Normal No Dec 22 te mean informati 2016 1:51 corpuscul on in AM ar source hemoglobi data n [Entitic mass] Erythrocy 31.8 - g/dl Normal No Dec 22 te mean 35.4 inform2016 1:51 corpuscul on in AM ar source hemoglobi data n concentra tion [Mass/vol ume] by Automated count Erythrocy 82.2 - fl Normal No Dec 22 te mean 97.8 informati 2016 1:51 corpuscul on in AM ar volume source [Entitic data volume] by Automated count Monocytes 0.1 - 1.0 K/mm3 Normal No Dec 22 inform2016 1:51 [#/volume on in AM ] in source Blood by data Automated count Monocytes 1.7 - 9.3 % Normal No Dec 22 /100 informati 2016 1:51 leukocyte on in AM s in source Blood by data Automated count Platelet 7.4 - fl Low No Dec 22 mean 10.4 inform2016 1:51 volume on in AM [Entitic source volume] data in Blood by Automated count Platelets 142 - 424 K/mm3 Normal No Dec 222016 1:51 [#/volume on in AM ] in source Blood data Erythrocy 4.6 - 6.2 M/mm3 Normal No Dec 22 kael informati 2016 1:51 [#/volume on in AM ] in source Amniotic data fluid Erythrocy 11.5 - % Normal No Dec 22 te 17.5 informati 2016 1:51 distribut on in AM ion width source [Entitic data volume] by Automated count Leukocyte 4.8 - K/MM3 Normal No Dec 22 s 10.8 informati 2016 1:51 [#/volume on in AM ] in source Blood data CBC W Auto Differential panel in Blood Observa Value Referen Units Interpr Notes Date tion ce etation Range Basophils 0 - 0.2 K/MM3 Normal No Sep 16 informati 2016 2:15 [#/volume on in PM ] in source Blood by data Automated count Basophils 0.1 - 2.0 % Normal No Sep 16 /100 informati 2016 2:15 leukocyte on in PM s in source Blood by data Automated count Eosinophi 0.0 - 0.4 K/mm3 Normal No Sep 16 ls ati 2016 2:15 [#/volume on in PM ] in source Blood by data Automated count Eosinophi 0.1 - % Normal No Sep 16 ls/100 12.0 informati 2017 2:15 leukocyte on in PM s in source Blood by data Automated count Granulocy 1.3 - 8.0 K/mm3 Normal No Sep 16 kael inform 2017 2:15 [#/volume on in PM ] in source Blood by data Automated count Granulocy 37.0 - % Normal No Sep 16 kael/100 80.0 inform2016 2:15 leukocyte on in PM s in source Blood by data Automated count Hematocri 42.0 - % Normal No Sep 16 t [Volume 52.0 inform2016 2:15 on in PM Fraction] source of Blood data Hemoglobi 14.1 - g/dL Normal No Sep 16 n 18.0 informati 2016 2:15 [Mass/vol on in PM ume] in source Blood data Lymphocyt 0.7 - 4.5 K/mm3 Normal No Sep 16 es inform 2017 2:15 [#/volume on in PM ] in source Unspecifi data ed specimen by Automated count Lymphocyt 10 - 50 % Normal No Sep 16 es inform2016 2:15 [#/volume on in PM ] in source Unspecifi data ed specimen by Automated count Erythrocy 27 - 31.2 pg Normal No Sep 16 te mean inform2016 2:15 corpuscul on in PM ar source hemoglobi data n [Entitic mass] Erythrocy 31.8 - g/dl Normal No Sep 16 te mean 35.4 inform2016 2:15 corpuscul on in PM ar source hemoglobi data n concentra tion [Mass/vol ume] by Automated count Erythrocy 82.2 - fl Normal No Sep 16 te mean 97.8 informati 2016 2:15 corpuscul on in PM ar volume source [Entitic data volume] by Automated count Monocytes 0.1 - 1.0 K/mm3 Normal No Sep 16 inform2016 2:15 [#/volume on in PM ] in source Blood by data Automated count Monocytes 1.7 - 9.3 % Normal No Sep 16 /100 informati 2017 2:15 leukocyte on in PM s in source Blood by data Automated count Platelet 7.4 - fl Low No Sep 16 mean 10.4 informati 2016 2:15 volume on in PM [Entitic source volume] data in Blood by Automated count Platelets 142 - 424 K/mm3 Normal No Sep 16 inform2016 2:15 [#/volume on in PM ] in source Blood data Erythrocy 4.6 - 6.2 M/mm3 Normal No Sep 16 kael informati 2016 2:15 [#/volume on in PM ] in source Amniotic data fluid Erythrocy 11.5 - % Normal No Oct 16 te 17.5 informati 2016 2:15 distribut on in PM ion width source [Entitic data volume] by Automated count Leukocyte 4.8 - K/MM3 Normal No Sep 16 s 10.8 informati 2016 2:15 [#/volume on in PM ] in source Blood data Magnesium [Moles/volume] in Unspecified specimen Observa Value Referen Units Interpr Notes Date tion ce etation Range Magnesium 1.4 - 2.2 mg/dL Normal No Sep 19 informati 2016 7:32 [Moles/vo on in AM lume] in source Unspecifi data ed specimen CBC W Auto Differential panel in Blood Observa Value Referen Units Interpr Notes Date tion ce etation Range Basophils 0 - 0.2 K/MM3 Normal No Sep 19 informati 2016 7:32 [#/volume on in AM ] in source Blood by data Automated count Basophils 0.1 - 2.0 % Normal No Sep 19 / informati 2016 7:32 leukocyte on in AM [...] Hemoglobi 14.1 - g/dL Normal No Sep 19 n 18.0 informati 2016 7:32 [Mass/vol on in AM ume] in source Blood data Lymphocyt 0.7 - 4.5 K/mm3 Normal No Sep 19 es informati 2016 7:32 [#/volume on in AM ] in source Unspecifi data ed specimen by Automated count Lymphocyt 10 - 50 % Normal No Sep 19 es inform2016 7:32 [#/volume on in AM ] in [...] Automated count Erythrocy 82.2 - fl Normal Sep 19 te mean 97.8 informati 2016 7:32 corpuscul on in AM ar volume source [Entitic data volume] by Automated count Monocytes 0.1 - 1.0 K/mm3 Normal No Sep 192016 7:32 [#/volume on in AM ] in source Blood by data Automated count Monocytes 1.7 - 9.3 % Normal No Sep 19 informati 2016 7:32 leukocyte on in AM s in source Blood by data Automated count Platelet 7.4 - fl Low Sep 19 mean 10.4 informati 2016 7:32 volume on in AM [Entitic source volume] data in Blood by Automated count Platelets 142 - 424 K/mm3 Normal No Sep 192016 7:32 [#/volume on [...] - 2.0 % Normal No Aug 16 informati 2016 2:45 leukocyte on in PM [...] pg Normal No Aug 16 te mean informati 2016 2:45 corpuscul on in PM ar source hemoglobi data n [Entitic mass] Erythrocy 31.8 - g/dl Normal No Aug 16 te mean 35.4 informati 2016 2:45 corpuscul on in PM ar source hemoglobi data n concentra tion [Mass/vol ume] by Automated count Erythrocy 82.2 - fl Normal No Aug 16 te mean 97.8 informati 2016 2:45 corpuscul on in PM ar volume source [Entitic data volume] by Automated count Monocytes 0.1 - 1.0 K/mm3 Normal No Aug 16 informati 2016 2:45 [#/volume on in PM ] in source Blood by data Automated count Monocytes 1.7 - 9.3 % Normal No Aug 16 / informati 2016 2:45 leukocyte on in PM s in source Blood by data Automated count Platelet 7.4 - fl Low No Aug 16 mean 10.4 informati 2016 2:45 volume on in PM [Entitic source volume] data in Blood by Automated count Platelets 142 - 424 K/mm3 Normal No Aug 16 inform2016 2:45 [#/volume on in PM ] in source Blood data Erythrocy 4.6 - 6.2 M/mm3 Normal No Aug 16 kael informati 2016 2:45 [#/volume on in PM ] in source Amniotic data fluid Erythrocy 11.5 - % Normal No Aug 16 te 17.5 informati 2017 2:45 distribut on in PM ion width [...] - 2.0 % Normal No Aug 01 / informati 2017 4:05 leukocyte on in PM s in source Blood by data Automated count Eosinophi 0.0 - 0.4 K/mm3 Normal No Aug 01 ls informati 2016 4:05 [#/volume on in PM ] in source Blood by data Automated count Eosinophi 0.1 - % Normal No Aug 01 ls/100 12.0 informati 2016 4:05 leukocyte on in PM s in source Blood by data Automated count Granulocy 1.3 - 8.0 K/mm3 Normal No Aug 01 kael informati 2016 4:05 [#/volume on in [...] 0.7 - 4.5 K/mm3 Normal No Jul 15 es informati 2016 4:05 [#/volume on in PM ] in source Unspecifi data ed specimen by Automated count Lymphocyt 10 - 50 % Normal No Jul 15 es informati 2016 4:05 [#/volume on in PM ] in source Unspecifi data ed specimen by Automated count Erythrocy 27 - 31.2 pg High No Jul 15 te mean informati 2016 4:05 corpuscul on [...] 0.1 - 1.0 K/mm3 Normal No Jul 15 informati 2016 4:05 [#/volume on in PM ] in source Blood by data Automated count Monocytes 1.7 - 9.3 % Normal No Jul 15 /100 informati 2017 4:05 leukocyte on in PM s in source Blood by data Automated count Platelet 7.4 - fl Low No Aug 01 mean 10.4 informati 2016 4:05 volume on in PM [Entitic source volume] data in Blood by Automated count Platelets 142 - 424 K/mm3 Normal No Jul 15 informati 2016 4:05 [#/volume on in PM ] in source Blood data Erythrocy 4.6 - 6.2 M/mm3 Low No Jul 15 kael informati 2017 4:05 [#/volume on in PM ] in source Amniotic data fluid Erythrocy 11.5 - % Normal No Aug 01 te 17.5 informati 2016 4:05 distribut on in PM ion width [...] 1.1 - 1.8 No Normal No Jul 28 lobulin informati informati 2016 8:30 [Mass on in on in PM ratio] in source source Serum or data data Plasma Albumin 3.4 - 5.0 gm/dL Normal No Jul 28 [Mass/vol informati 2016 8:30 ume] in on in PM Serum or source Plasma data Alkaline 46 - 116 U/L Normal No Jul 28 phosphata informati 2017 8:30 se on in PM [Enzymati source c data activity/ volume] in Serum or Plasma Bilirubin 0.2 - 1.0 mg/dL Normal No Jul 28 .total informati 2016 8:30 [Mass/vol on in PM ume] in source Serum or data Plasma Urea 7 - 18 mg/dL High No Jul 28 nitrogen informati 2016 8:30 [Mass/vol on in PM ume] in source Serum or data Plasma Calcium 8.5 - mg/dL Normal No Jul 28 [Mass/vol 10.1 informati 2017 8:30 ume] in on in PM Serum or source Plasma data Chloride 98 - 107 mmoL/L Normal No Jul 28 [Moles/vo informati 2016 8:30 lume] in on in PM Serum or source Plasma data Carbon 21.0 - mmoL/L Normal No Jul 28 dioxide, 32.0 informati 2017 8:30 total on in PM [Moles/vo source lume] in data Serum or Plasma Creatinin 0.70 - mg/dL Normal No Jul 28 e 1.30 informati 2017 8:30 [Mass/vol on in PM ume] in source Serum or data Plasma Creatinin 50 - 200 ML/MIN Normal No Jul 28 e renal informati 2017 8:30 clearance on in PM source predicted data by Cockcroft -Gault formula Estimated >60 ML/MIN No REFERENCE Francis 11 informati RANGE: 2017 8:30 glomerula on in >60 PM r source ML/MIN/1. filtratio data 73 SQUARE n rate METERSIf (GF this patient is -A merican, then multiply theresult by 1.210. Globulin 1.3 - 3.2 gm/dL High No Jul 11 [Mass/vol informati 2017 8:30 ume] in on [...] 78 U/L Normal No Jul 28 aminotran inform2016 8:30 sferase on in PM [Enzymati source [...] Automated count Eosinophi 0.1 - % Normal Jul 28 ls/100 12.0 informati 2016 8:30 leukocyte on in PM s in source Blood by data Automated count Granulocy 1.3 - 8.0 K/mm3 Normal No Jul 28 kael informati 2016 8:30 [#/volume on in PM ] in source Blood by data Automated count Granulocy 37.0 - % Normal No Jul 28 kael/100 80.0 informati 2017 8:30 leukocyte on in PM s in [...] K/mm3 Normal No Jul 28 es informati 2017 8:30 [#/volume on in PM ] in [...] No Jul 28 te mean 97.8 informati 2017 8:30 corpuscul on in PM ar volume source [Entitic data volume] by Automated count Monocytes 0.1 - 1.0 K/mm3 Normal No Jul 28 informati 2016 8:30 [#/volume on in PM ] in source Blood by data Automated count Monocytes 1.7 - 9.3 % Normal No Jul 28 / informati 2017 8:30 leukocyte on in PM s in source Blood by data Automated count Platelet 7.4 - fl Low No Jul 28 mean 10.4 informati 2017 8:30 volume on in PM [Entitic source volume] data in Blood by Automated count Platelets 142 - 424 K/mm3 Normal No Jul 28 informati 2017 8:30 [#/volume on in PM ] in [...] Leukocyte 4.8 - K/MM3 Normal No Jul 11 s 10.8 informati 2016 8:30 [#/volume on [...] in 11:24 source source AM data data [place]# 0.5 0.0 - x10(3)/ No No Dec 05 1.3 mcL informa informa 2016 tion in tion in 11:24 source source AM data data Eos# 0.1 0.0 - x10(3)/ No No Dec 05 0.5 [facility] informa informa 2016 tion in tion in 11:24 source source AM data data Baso# 0.0 0.0 - x10(3)/ No No Dec 05 0.2 [facility] informa informa 2016 tion in tion in 11:24 source source AM data data CBC Observa Value Referen Units Interpr Notes Date tion ce etation Range LEUKOCY 9.2 4.0 - x10(3)/ No No Dec 05 KAEL 11.0 [facility] informa informa 2016 tion in tion in 11:24 source source AM data data Erythro 4.76 4.30 - x10(6)/ No No Dec 05 cytes 5.81 [facility] informa informa 2016 [#/volu tion in tion [...] Observa Value Referen Units Interpr Notes Date ti ce etation Range Station No No No No Dec 05 [place] ECG informa informa informa informa 2016 tion in tion in tion in tion in 10:41 Study\. source source source source AM br\St. 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\.br\ Electro nically Signed On 016 21:43:2 9 EDT by Agustin Green MD XR CHEST PA AND LATERAL Observa Value Referen Units Interpr Notes Date ti ce etation Range \.br\XR No No No No Nov 06 CHEST informa informa informa informa 2016 PA AND tion in tion in tion [...] No Sep 20 um 2.4 informa informa 2016 [Moles/ tion in tion in 2:44 AM [...] in 2:29 AM source source data data [place]ruff# 0.5 0.0 - x10(3)/ No No Sep [...] Sep 20 KAEL 11.0 mcL informa informa 2016 tion in tion in 2:29 AM source source data data Erythro 4.73 4.30 - x10(6)/ No No Sep 20 cytes 5.81 mcL informa informa 2016 [#/volu tion in [...] MPV 6.9 6.8 - fL No No Oct 20 10.8 informa informa 2016 tion in tion in 2:29 AM source source data data EK EKG 12 LEAD Observa Value Referen Units Interpr Notes Date tion ce etation Range Station No No No No Sep 20 leona ECG informa informa informa informa 2015 tion in tion in tion in tion in 2:05 AM Study\. source source source source br\St. 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
--- OUTSIDE RECORDS SUMMARY | 2017-01-01 09:49 | External Medical Summary Rpt ---
[...] in 11:24 source source AM data data [place]# 0.5 0.0 - x10(3)/ No No Dec 05 1.3 mcL informa informa 2016 tion in tion in 11:24 source source AM data data Eos# 0.1 0.0 - x10(3)/ No No Dec 05 0.5 [facility] informa informa 2016 tion in tion in 11:24 source source AM data data Baso# 0.0 0.0 - x10(3)/ No No Dec 05 0.2 [facility] informa informa 2016 tion in tion in 11:24 source source AM data data CBC Observa Value Referen Units Interpr Notes Date tion ce etation Range LEUKOCY 9.2 4.0 - x10(3)/ No No Dec 05 KAEL 11.0 [facility] informa informa 2016 tion in tion in 11:24 source source AM data data Erythro 4.76 4.30 - x10(6)/ No No Dec 05 cytes 5.81 [facility] informa informa 2016 [#/volu tion in tion [...] in 2:29 AM source source data data [place]# 0.5 0.0 - x10(3)/ No No Sep [...]
[2017-01-01 10:07] LABS: BUN 14 mg/dL (7-18)
[2017-01-01 10:08] LABS: GFR (ESTIMATED) 82 ML/MIN (>60)
[2017-01-01 10:31] VITALS: BP 129/76
--- NOTE | 2017-01-01 16:09 | RADIOLOGY REPORT PS360 ---
CHEST-PORTABLE HISTORY: Chest pain CP ORDERING PHYSICIAN: Ryan Munson MD PATIENT AGE: 41 years COMPARISON: 12/22/2016 FINDINGS: The cardiomediastinal silhouette and pulmonary vascularity are within normal limits. The lungs are clear without infiltrates, suspicious nodules, or pleural effusions. No acute bony abnormalities. Live recorder device remains in place along the left aspect of the chest inferiorly. IMPRESSION: No change with no acute finding
== END 2017-01-01 10:32 | disposition home or self-care (01) ==
LOC: ER 09:23
PROVIDERS: Emergency Medicine
DX: R00.2 Palpitations (principal); I10 Essential (primary) hypertension; E78.5 Hyperlipidemia, unspecified